=== PATIENT | male | born 1985 | race Caucasian/White ===

== ENCOUNTER 2020-06-22 11:05 | Outpatient (REF) | payer OTHER, SELFPAY ==
[2020-06-22 11:47] LABS: MANUAL DIFF FLAG NO
[2020-06-22 11:52] LABS: Basophils Percent Auto 0.9 % (0-2); Eosinophils Absolute Auto 0.2 X10*3/uL (0.0-0.4); Eosinophils Percent Auto 4.2 % (0-4); Hematocrit 44.2 % (42-52); Hemoglobin 14.6 g/dl (14.0-18.0); Imm Gran Abs Auto 0.01 X10*3/uL (0.00-0.03); Imm Gran Pct Auto 0.2 % (0.0-0.4); Lymphocytes Absolute Auto 1.2 X10*3/uL (1.2-4.9); Mean Corpuscular Hemoglobin 30.2 pg (27.0-33.0); Mean Corpuscular Volume 91.5 fL (80-98); Mean Platelet Volume 9.6 fL (9.4-12.4); Monocytes Absolute Auto 0.4 X10*3/uL (0.1-1.2); Monocytes Percent Auto 9.2 % (2-11); Neutrophils Absolute Auto 2.7 X10*3/uL (2.0-8.3); Neutrophils Percent Auto 58.5 % (45-73); Platelet Count 305 X10*3/uL (160-400); Red Blood Count 4.83 X10*6/uL (4.60-5.80); Red Cell Distribution Width 12.3 % (11.0-16.0); White Blood Count 4.6 X10*3/uL (4.8-10.8)
[2020-06-22 12:31] LABS: Alanine Aminotransferase 28 U/L (0-40); Albumin Level 4.6 g/dL (3.5-5.0); Alkaline Phosphatase 49 U/L (39-117); Anion Gap 14 (12-20); Aspartate Amino Transferase 28 U/L (5-37); Bilirubin Total 0.7 mg/dL (0.0-1.0); Blood Urea Nitrogen 11 mg/dL (9-16); Calcium 9.5 mg/dL (8.4-10.2); Carbon Dioxide 24 mmol/L (22-29); Chloride 105 mmol/L (96-108); Estimated Glomerular Filt Rate > 60; Glucose Fasting 89 mg/dL (60-99); Potassium 4.5 mmol/l (3.3-5.1); Sodium 138 mmol/L (135-145); Total Protein 7.8 g/dL (6.5-8.0)
[2020-06-22 12:37] LABS: Thyroid Stimulating Hormone 0.89 mIU/mL (0.32-4.0)
[2020-06-22 12:44] LABS: Erythrocyte Sedimentation Rate 3 MM/HR (0-15)
== END 2020-06-22 11:06 | disposition home or self-care (01) ==
LOC: HO.LAB 11:05
PROVIDERS: PCP Internal Medicine; Visit Provider Internal Medicine
DX: R53.83 Other fatigue (principal)
CPT/HCPCS: 36415; 80053; 84443; 85025; 85652

== ENCOUNTER 2020-09-07 15:11 | Emergency (ER) | payer OTHER, SELFPAY ==
[2020-09-07 15:14] VITALS: BP 166/97; PULSE 67; RESP 16; TEMP 36.9; O2SAT 99; BMI 25.8
[2020-09-07 19:55] VITALS: BP 155/90; PULSE 77; RESP 17; TEMP 36.2; O2SAT 100
--- NOTE | 2020-09-07 19:57 | PC.NURSE ---
PT REPORTS STOPPING CITALOPRAM 4 WEEKS AGO AND IS EXPERIENCING TREMORS OF HANDS AND MUSCLES.
--- NOTE | 2020-09-07 20:14 | PC.NURSE ---
PLAN DISCUSSED WITH NAZARIO FREDERICK. LABS AND IF LABS ABNORMAL THEN IV AND SALINE BOLUS.
--- NOTE | 2020-09-07 20:30 | ED_ITS ---
HPI - General Adult General Chief complaint: General Medical Stated complaint: Tremors Time Seen by Provider: 09/07/20 20:02 Source: patient Mode of arrival: ambulatory Limitations: no limitations History of Present Illness HPI narrative: Patient presents to ED for tremors and muscle spasms that has been occurring for over 6 weeks. Patient states he was placed on citalopram for about 3 months. Patient states during the 2nd month of taking said medication, Patient started developing tremors, and by the 3rd month his psychiatrist took him off the citalopram. Patient states from the 2nd month being on medication until now he has had tremors. Patient denies any history of alcohol abuse. Patient admits to suffering from anxiety. Related Data Previous Rx's Medication Instructions Recorded hydroxyzine HCl 25 mg PO QID PRN 16 Days #16 tab 09/07/20 Allergies Allergy/AdvReac Type Severity Reaction Status Date / Time No Known Allergies Allergy Unverified 06/04/20 15:44 [No Known Allergies*] Review of Systems Review of Systems: Yes all other systems are reviewed and are negative Constitutional: Constitutional: Reports as per HPI and Reports no additional constitutional complaints Eyes: Eyes: Reports as per HPI and Reports no additional eye complaints ENT: Reports system reviewed and no additional complaints, except as documented and Reports as per HPI Cardiovascular: Cardiovascular: Reports as per HPI and Reports no additional cardiovascular complaints Respiratory: Respiratory: Reports as per HPI and Reports no additional respiratory complaints Gastrointestinal: Gastrointestinal: Reports as per HPI and Reports no additional gastrointestinal complaints Genitourinary: Genitourinary: Reports no additional male genitourinary complaints and Reports as per HPI Musculoskeletal: Musculoskeletal: Reports no additional musculoskeletal complaints and Reports as per HPI Comments: Tremors and muscle spasm. Neurologic: Reports system reviewed and no additional complaints, except as documented and Reports as per HPI Psychiatric: Psychiatric: Reports no additional psychiatric complaints and Reports as per HPI [facility] Past Medical History Medical History (Updated 09/08/20 @ 00:01 by Jhon Bird) Asthma Depression Social History Social History Alcohol intake: current Smoking Status: Never smoker Use of substances other than those prescribed or required for medical reasons: No Advance Directives: No Advance Directives Information Provided: No Physical Exam Vital Signs: Vital Signs: Last Vital Signs Temp 97.2 F 09/07/20 19:55 Pulse 77 09/07/20 19:55 Resp 17 09/07/20 19:55 BP 155/90 H 09/07/20 19:55 Pulse Ox 100 09/07/20 19:55 Body Mass Index 25.8 Const: Other: Patient seem anxious General: cooperative, healthy appearing, comfortable, no acute distress, well developed, alert and awake Orientation/consciousness: patient oriented x3 HENMT: Head: Yes normal to inspection and Yes No palpable skull fracture present Eyes: Other: Negative for nystagmus or ocular clonus Neck: Neck: Yes normal visual inspection, Yes full ROM, Yes no lymphadenopathy, Yes no meningeal signs, Yes trachea midline, Yes supple and No tender Chest: Chest palpation & inspection: normal inspection of the chest and normal palpation of entire chest wall Resp: Effort & Inspection: normal respiratory effort and able to speak in complete sentences Auscultation: clear to auscultation bilaterally Cardio: Jugular venous distension: no JVD Heart sounds: S1 normal heart sound present and S2 normal heart sound present GI: Inspection: Yes normal to inspection and No abdominal wall ecchymosis Palpation (GI): Soft to palpation, not firm, nontender, no guarding and not rigid : General: No CVA tenderness and Yes no CVA tenderness Back/Spine/Pelvis: Back: no CVA tenderness, No CVA tenderness and No back tenderness Skin: General skin exam: no rashes or lesions noted Neuro: Other: Negative pronator drift. Motor and strength of all extremities are intact. Negative for slurred speech. Negative for facial droop. Rapid hand movement and [id number] test intact. Negative Romberg. General: patient oriented x3, gait normal, no meningeal signs and CN's II-XI intact bilaterally Cranial nerves: Yes CN's II-XII intact bilaterally Extrem: Other: Upper extremities positive for mild tremors. Negative pronator drift. Negative for any muscle spasms on exam General: Yes normal to inspection and Yes full ROM Psych: Appearance: grossly normal, well kempt and not disheveled Course Course Course Narrative: Patient seems very anxious. Very unlikely patient having serotonin syndrome toxicity. Patient has been off medication for over 6 weeks. Negative for any ocular clonus. Patient is not hyperthermic. We will do basic labs to check for any electrolyte deficiency. Will do CPK to make sure there is no rhabdomyolysis. Reevaluation(s) Reevaluation #1: History physical exam does not indicate serotonin syndrome. Patient's blood work is normal. Patient does not have any electrolyte abnormalities. Patient's CT scan negative for any acute findings. Patient's CPK is only 241. Patient is not in rhabdomyolysis. Patient is not hyperthermic. Patient is not tachycardic. Patient has been off citalopram for over 6 weeks. History physical exam indicate more anxiety. Patient will be given Atarax informed to follow-up with PCP. Time: 21:46 Medical Decision Making MDM Narrative Medical decision making narrative: Tremors. Anxiety Lab Data Result diagrams: 09/07/20 20:28 09/07/20 20:28 Labs: Lab Results 09/07/20 09/07/20 09/07/20 Range/Units 20:28 20:28 20:28 WBC 7.8 (4.8-10.8) X10*3/uL RBC 4.74 (4.60-5.80) X10*6/uL Hgb 14.5 (14.0-18.0) g/dl Hct 43.7 (42-52) % MCV 92.2 (80-98) fL MCH 30.6 (27.0-33.0) pg MCHC 33.2 (31.0-36.0) g/dl RDW 12.5 (11.0-16.0) % Plt Count 321 (160-400) X10*3/uL MPV 9.0 L (9.4-12.4) fL Immature Gran % (Auto) 0.1 (0.0-0.4) % Neut % (Auto) 55.4 (45-73) % Lymph % (Auto) 29.9 (20-40) % [place] % (Auto) 7.3 (2-11) % Eos % (Auto) 6.7 H (0-4) % Baso % (Auto) 0.6 (0-2) % Lymph # (Auto) 2.3 (1.2-4.9) X10*3/uL [place] # (Auto) 0.6 (0.1-1.2) X10*3/uL Eos # (Auto) 0.5 H (0.0-0.4) X10*3/uL Baso # (Auto) 0.1 (0.0-0.2) X10*3/uL Abs Immat Gran (auto) 0.01 (0.00-0.03) X10*3/uL Absolute Neuts (auto) 4.3 (2.0-8.3) X10*3/uL Absolute Nucleated RBC 0.000 (0.0-0.012) X10*3/uL Nucleated RBC % (auto) 0.0 (0.0-0.2) /100WBC PT 12.2 (10.8-13.0) SEC INR 1.0 (0.9-1.1) APTT 35.5 (24.1-38.0) SEC Sodium 139 (135-145) mmol/L Potassium 4.0 (3.3-5.1) mmol/l Chloride 101 (96-108) mmol/L Carbon Dioxide 29 (22-29) mmol/L Anion Gap 13 (12-20) BUN 14 (9-16) mg/dL Creatinine 0.84 (0.5-1.4) mg/dL Estim Creat Clear Calc 130.3 Estimated GFR > 60 Random Glucose 85 (60-115) mg/dL Calcium 9.2 (8.4-10.2) mg/dL Magnesium 2.1 (1.6-2.6) mg/dL Total Bilirubin 0.6 (0.0-1.0) mg/dL AST 29 (5-37) U/L ALT 41 H (0-40) U/L Alkaline Phosphatase 60 D (39-117) U/L Total Creatine Kinase 241 H (38-174) U/L Total Protein 8.0 (6.5-8.0) g/dL Albumin 4.6 (3.5-5.0) g/dL Discharge Plan Discharge Clinical Impression: Anxiety related tremor Patient Disposition: Home, Self-Care Instructions: Anxiety (ED), Tremors (ED) Additional Instructions: Return to the ED immediately for any headache, dizziness, slurred speech, chest pain, shortness of breath, weakness, loss of vision, or any other concerning symptoms. Prescriptions: New hydroxyzine HCl 25 mg tablet 25 mg PO QID PRN (Reason: anxiety) 16 Days Qty: 16 RF: 0 Referrals: Kody Spear MD [Primary Care Provider] - 2 days (Labs normal. Head CT normal. Refer to Neurology if indicated. Please follow-up with her psychiatrist also) Interventions: ED Discharge Assessment Last Done: 09/07/20 22:09 Discharge Date/Time: 09/07/20 22:14 Print Language: Bahamian
[2020-09-07 20:33] LABS: Basophils Absolute Auto 0.1 X10*3/uL (0.0-0.2); Basophils Percent Auto 0.6 % (0-2); Eosinophils Absolute Auto 0.5 X10*3/uL (0.0-0.4); Eosinophils Percent Auto 6.7 % (0-4); Hematocrit 43.7 % (42-52); Hemoglobin 14.5 g/dl (14.0-18.0); Imm Gran Abs Auto 0.01 X10*3/uL (0.00-0.03); Imm Gran Pct Auto 0.1 % (0.0-0.4); Lymphocytes Absolute Auto 2.3 X10*3/uL (1.2-4.9); Lymphocytes Percent Auto 29.9 % (20-40); MANUAL DIFF FLAG NO; Mean Corpuscular HGB Conc 33.2 g/dl (31.0-36.0); Mean Corpuscular Hemoglobin 30.6 pg (27.0-33.0); Mean Corpuscular Volume 92.2 fL (80-98); Monocytes Absolute Auto 0.6 X10*3/uL (0.1-1.2); Monocytes Percent Auto 7.3 % (2-11); Neutrophils Absolute Auto 4.3 X10*3/uL (2.0-8.3); Neutrophils Percent Auto 55.4 % (45-73); Platelet Count 321 X10*3/uL (160-400); Red Blood Count 4.74 X10*6/uL (4.60-5.80); Red Cell Distribution Width 12.5 % (11.0-16.0); White Blood Count 7.8 X10*3/uL (4.8-10.8)
[2020-09-07 20:40] LABS: Prothrombin Time 12.2 SEC (10.8-13.0)
[2020-09-07 20:42] LABS: Partial Thromboplastin Time 35.5 SEC (24.1-38.0)
--- NOTE | 2020-09-07 20:45 | CT_ITS ---
EXAMINATION: CT HEAD WITHOUT CONTRAST CLINICAL INFORMATION: tremors. brain mass? COMPARISON: None TECHNIQUE: Contiguous axial imaging was performed from the skull base to vertex without intravenous administration of contrast. This CT examination was performed using dose optimization techniques as appropriate, variously including the following: *Automated exposure control *Adjustment of mA and/or kV according to patient size (this includes techniques or standardized protocols for targeted exams where dose is matched to indication/reason for exam; i.e. extremities or head) *Use of iterative reconstruction technique DLP: 724 mGy-cm FINDINGS: There is no evidence of acute intracranial hemorrhage or territorial infarction. No abnormal mass effect or midline shift is seen. Dupont to white matter differentiation is well preserved. No extra-axial fluid collections are identified. The ventricles are normal in size. There is no abnormal attenuation within the brain parenchyma. The osseous structures and soft tissues are normal. The mastoid air cells and visualized portions of the paranasal sinuses are well aerated. CT/CT head/brain wo con IMPRESSION: No acute intracranial pathology.
[2020-09-07 20:54] LABS: Alanine Aminotransferase 41 U/L (0-40); Albumin Level 4.6 g/dL (3.5-5.0); Alkaline Phosphatase 60 U/L (39-117); Anion Gap 13 (12-20); Aspartate Amino Transferase 29 U/L (5-37); Bilirubin Total 0.6 mg/dL (0.0-1.0); Blood Urea Nitrogen 14 mg/dL (9-16); Calcium 9.2 mg/dL (8.4-10.2); Carbon Dioxide 29 mmol/L (22-29); Chloride 101 mmol/L (96-108); Creatinine Clr Calc Pharmacy 130.3; Estimated Glomerular Filt Rate > 60; Glucose Random 85 mg/dL (60-115); Magnesium 2.1 mg/dL (1.6-2.6); Sodium 139 mmol/L (135-145)
== END 2020-09-07 22:14 | disposition home or self-care (01) ==
PROVIDERS: Physician Assistant; Emergency Provider Internal Medicine; PCP Internal Medicine
DX: F41.9 Anxiety disorder, unspecified (principal); R25.1 Tremor, unspecified
CPT/HCPCS: 36415; 70450; 80053; 82550; 83735; 85025; 85610; 85730; 99284

== ENCOUNTER 2020-11-27 10:38 | Outpatient (REF) | payer OTHER, SELFPAY ==
[2020-11-27 11:41] LABS: SARS COV2 IgG Negative (Negative)
== END 2020-11-27 10:39 | disposition home or self-care (01) ==
LOC: HO.LNP 10:38
PROVIDERS: Visit Provider Internal Medicine
DX: B94.8 Sequelae of other specified infectious and parasitic diseases (principal)
CPT/HCPCS: 86769

== ENCOUNTER 2023-01-19 16:58 | Outpatient (REF) | payer OTHER, SELFPAY ==
--- NOTE | ~2023-01-19 | XR_ITS ---
EXAMINATION: XR TIBIA AND FIBULA, LEFT CLINICAL INFORMATION: Pain. COMPARISON: None available. TECHNIQUE: AP and lateral views of the left tibia and fibula were obtained. FINDINGS: No acute fractures or malalignment. No aggressive appearing osseous lesions. No significant soft tissue abnormality. No unexpected radiopaque foreign bodies. XR/XR tibia fibula LT 2V IMPRESSION: Normal radiographic examination of the left tibia/fibula.
== END 2023-01-19 16:59 | disposition home or self-care (01) ==
LOC: HO.HMGCX 16:58
PROVIDERS: Visit Provider Physician Assistant Medical
DX: M79.662 Pain in left lower leg (principal)
CPT/HCPCS: 73590

== ENCOUNTER 2023-02-27 16:07 | Outpatient (REF) | payer OTHER, SELFPAY ==
--- NOTE | ~2023-02-27 | US_ITS ---
EXAMINATION: US VENOUS ULTRASOUND WITH DOPPLER LOWER EXTREMITY, LEFT CLINICAL INFORMATION: Pain. COMPARISON: None available. TECHNIQUE: Ultrasound of the deep veins is performed from the hip to the calf with compression sonography and color and pulse Doppler assessment. Spectral analysis with color-flow imaging is performed. FINDINGS: There is normal venous compression and respiratory variation and augmented flow. The visualized common femoral vein, superficial femoral vein, profunda femoral vein, popliteal vein, and the trifurcation region shows no evidence of deep venous thrombosis. There is no significant popliteal fossa cyst. US/US venous duplex LE LT IMPRESSION: No DVT demonstrated in the left lower extremity.
== END 2023-02-27 16:08 | disposition home or self-care (01) ==
LOC: HO.US 16:07
PROVIDERS: PCP Physician Assistant; Visit Provider Physician Assistant Medical
DX: M79.662 Pain in left lower leg (principal)
CPT/HCPCS: 93971

== ENCOUNTER 2023-05-25 11:28 | Outpatient (REF) | payer OTHER, SELFPAY ==
[2023-05-25 11:55] LABS: MANUAL DIFF FLAG NO
[2023-05-25 12:19] LABS: Basophils Percent Auto 0.5 % (0-2); Eosinophils Absolute Auto 0.3 X10*3/uL (0.0-0.4); Eosinophils Percent Auto 4.4 % (0-4); Hematocrit 44.8 % (42.0-52.0); Hemoglobin 15.2 g/dl (14.0-18.0); Imm Gran Abs Auto 0.01 X10*3/uL (0.00-0.03); Imm Gran Pct Auto 0.2 % (0.0-0.4); Lymphocytes Absolute Auto 2.4 X10*3/uL (1.2-4.9); Lymphocytes Percent Auto 42.5 % (20-40); Mean Corpuscular HGB Conc 33.9 g/dl (31.0-36.0); Mean Corpuscular Hemoglobin 31.2 pg (27.0-33.0); Mean Platelet Volume 9.6 fL (9.4-12.4); Monocytes Absolute Auto 0.5 X10*3/uL (0.1-1.2); Neutrophils Absolute Auto 2.5 x10*3/uL (2.0-8.3); Neutrophils Percent Auto 44.4 % (45-73); Platelet Count 349 X10*3/uL (160-400); Red Blood Count 4.87 X10*6/uL (4.60-5.80); Red Cell Distribution Width 12.8 % (11.0-16.0); White Blood Count 5.6 X10*3/uL (4.8-10.8)
[2023-05-25 12:25] LABS: Appearance Urine Clear; Color Urine Yellow; Glucose Urine UA Negative (Negative); Leukocyte Esterase Urine Negative (Negative); Nitrite Urine Negative (Negative); PH 5.5 (5.0-9.0); Specific Gravity - Urine 1.015 (1.005-1.025); Urine Blood Negative (Negative); Urine Ketones Negative (Negative); Urine Protein Negative (Neg-Trace)
[2023-05-25 12:27] LABS: Alanine Aminotransferase 44 U/L (0-40); Albumin Level 4.3 g/dL (3.5-5.0); Alkaline Phosphatase 59 U/L (39-117); Anion Gap 15 (12-20); Aspartate Amino Transferase 38 U/L (5-37); Bilirubin Total 0.6 mg/dL (0.0-1.0); Blood Urea Nitrogen 14 mg/dL (9-16); Calcium 9.1 mg/dL (8.4-10.2); Carbon Dioxide 23 mmol/L (22-29); Chloride 107 mmol/L (96-108); Cholesterol 231 mg/dL (<200); Estimated Glomerular Filt Rate > 60; Glucose Fasting 94 mg/dL (60-99); HDL Cholesterol 62 mg/dL (>40); LDL Cholesterol Calculated 132 mg/dL (<100); Potassium 3.9 mmol/L (3.3-5.1); Sodium 141 mmol/L (135-145); Triglycerides 187 mg/dL (<150)
== END 2023-05-25 11:29 | disposition home or self-care (01) ==
LOC: HO.LNP 11:28
PROVIDERS: Visit Provider Internal Medicine
DX: Z00.00 Encounter for general adult medical examination without abnormal findings (principal); Z20.2 Contact with and (suspected) exposure to infections with a predominantly sexual mode of transmission
CPT/HCPCS: 80053; 80061; 81003; 85025

== ENCOUNTER 2024-05-21 12:13 | Outpatient (REF) | payer OTHER, SELFPAY ==
[2024-05-21 12:24] LABS: MANUAL DIFF FLAG NO
[2024-05-21 12:41] LABS: Basophils Absolute Auto 0.1 X10*3/uL (0.0-0.2); Basophils Percent Auto 0.7 % (0-2); Eosinophils Absolute Auto 0.5 X10*3/uL (0.0-0.4); Eosinophils Percent Auto 6.7 % (0-4); Hematocrit 47.4 % (42.0-52.0); Hemoglobin 15.6 g/dl (14.0-18.0); Imm Gran Abs Auto 0.02 X10*3/uL (0.00-0.03); Imm Gran Pct Auto 0.3 % (0.0-0.4); Lymphocytes Absolute Auto 2.4 X10*3/uL (1.2-4.9); Lymphocytes Percent Auto 35.6 % (20-40); Mean Corpuscular HGB Conc 32.9 g/dl (31.0-36.0); Mean Corpuscular Hemoglobin 30.6 pg (27.0-33.0); Mean Corpuscular Volume 93.1 fL (80.0-98.0); Mean Platelet Volume 9.7 fL (9.4-12.4); Monocytes Absolute Auto 0.6 X10*3/uL (0.1-1.2); Monocytes Percent Auto 9.5 % (2-11); Neutrophils Absolute Auto 3.2 x10*3/uL (2.0-8.3); Neutrophils Percent Auto 47.2 % (45-73); Platelet Count 331 X10*3/uL (160-400); Red Blood Count 5.09 X10*6/uL (4.60-5.80); Red Cell Distribution Width 12.9 % (11.0-16.0); White Blood Count 6.8 X10*3/uL (4.8-10.8)
[2024-05-21 12:55] LABS: Alanine Aminotransferase 26 U/L (0-40); Albumin Level 4.4 g/dL (3.5-5.0); Alkaline Phosphatase 62 U/L (39-117); Anion Gap 14 (12-20); Aspartate Amino Transferase 24 U/L (5-37); Bilirubin Total 1.2 mg/dL (0.0-1.0); Blood Urea Nitrogen 17 mg/dL (9-16); Calcium 9.6 mg/dL (8.4-10.2); Carbon Dioxide 28 mmol/L (22-29); Chloride 102 mmol/L (96-108); Cholesterol 237 mg/dL (<200); Estimated Glomerular Filt Rate > 60; Glucose Fasting 90 mg/dL (60-99); HDL Cholesterol 70 mg/dL (>40); LDL Cholesterol Calculated 147 mg/dL (<100); Potassium 3.7 mmol/L (3.3-5.1); Sodium 140 mmol/L (135-145); Total Protein 8.3 g/dL (6.5-8.0); Triglycerides 101 mg/dL (<150)
[2024-05-21 13:02] LABS: Appearance Urine Clear; Color Urine Yellow; Glucose Urine UA Negative (Negative); Leukocyte Esterase Urine Trace (Negative); Nitrite Urine Negative (Negative); PH 6.5 (5.0-9.0); Specific Gravity - Urine 1.025 (1.005-1.025); UMIC TRIGGER UACC YES; Urine Blood Negative (Negative); Urine Ketones Trace mg/dL (Negative); Urine Protein Negative (Neg-Trace)
[2024-05-21 13:05] LABS: Bacteria Urine None Seen (None Seen); Hyaline Casts Urine 0-2 /LPF (0-2); RBC Urine 0-2 /HPF (0-2); Squamous Epithelial Cell Urine 0-2 /HPF (0-2); WBC Urine 0-5 /HPF (0-5)
== END 2024-05-21 12:14 | disposition home or self-care (01) ==
LOC: HO.LNP 12:13
PROVIDERS: Visit Provider Internal Medicine
DX: Z00.00 Encounter for general adult medical examination without abnormal findings (principal)
CPT/HCPCS: 80053; 80061; 81001; 85025

== ENCOUNTER 2024-11-28 13:14 | Outpatient (REF) | payer OTHER, SELFPAY ==
[2024-11-28 13:17] LABS: MANUAL DIFF FLAG NO
[2024-11-28 13:22] LABS: Basophils Percent Auto 0.9 % (0-2); Eosinophils Absolute Auto 0.4 X10*3/uL (0.0-0.4); Eosinophils Percent Auto 8.6 % (0-4); Hematocrit 48.9 % (42.0-52.0); Hemoglobin 16.9 g/dl (14.0-18.0); Imm Gran Abs Auto 0.01 X10*3/uL (0.00-0.03); Imm Gran Pct Auto 0.2 % (0.0-0.4); Lymphocytes Absolute Auto 1.5 X10*3/uL (1.2-4.9); Mean Corpuscular HGB Conc 34.6 g/dl (31.0-36.0); Mean Corpuscular Hemoglobin 31.1 pg (27.0-33.0); Mean Corpuscular Volume 90.1 fL (80.0-98.0); Mean Platelet Volume 9.6 fL (9.4-12.4); Monocytes Absolute Auto 0.4 X10*3/uL (0.1-1.2); Monocytes Percent Auto 9.5 % (2-11); Neutrophils Absolute Auto 2.3 x10*3/uL (2.0-8.3); Neutrophils Percent Auto 48.8 % (45-73); Platelet Count 320 X10*3/uL (160-400); Red Blood Count 5.43 X10*6/uL (4.60-5.80); Red Cell Distribution Width 13.2 % (11.0-16.0); White Blood Count 4.7 X10*3/uL (4.8-10.8)
[2024-11-28 13:53] LABS: PSA,Total (Free>4and<10) 0.88 ng/mL (0.00-4.00)
--- OUTSIDE RECORDS SUMMARY | 2024-11-28 16:44 | XMS_ITS ---
Author Organization Kody Spear MD Address [address] [place], [place] [phone] Care Team Providers Care Animal Doctor Name Role Phone Kody Spear Primary Care Provider Allergies No Known Allergies Results Component Value Reference Range Notes PSA,Total (Free>4and<10) Reviewed date:11/28/2024 04:08:52 PM Interpretation: Performing Lab:[facility], [address] [place] [phone] Notes/Report: PSA,Total (Free>4and<10) 0.88 0.00-4.00 ng/mL A [...] between 4.0 and 10.0 ng/mL. PSA methodology: Laen Alinity i Chemiluminescent Microparticle Immunoassay (CMIA) REASON FOR VISIT CHANGE IN ENDO DR [...] 800 MG TAKE 1 TABLET BY PRASHANTH THREE TIMES A DAY WITH FOOD OR [...] W/U Status Risk Notes Problem Androgen deficiency (89529602) Testosterone deficiency (E29.1) Active confirmed Vital Signs Blood pressure systolic 132 mm Hg 11/29/19 25 Blood pressure diastolic 88 mm Hg 025 Height 69 in 11/28/2024 Weight 199 lbs 11/28/2024 BMI 29.38 kg/m2 11/28/2024 weight is up 5 pounds since 06-20-24 Encounters Encounter Location Date Provider Diagnosis Kody Spear MD [address] [place] [address] [place] [phone] 11/28/2024 Kody Spear Testosterone deficiency E29.1 Assessments Encounter Date Diagnosis (ICD Code) Assessment Notes Treatment Notes Treatment Clinical Notes Section Notes 11/28/2024 Testosterone deficiency (ICD-10 - E29.1) discussed referral to [facility] at [facility], will continue to monitor, labs pending Plan Of Treatment Treatment Notes Assessment Notes Testosterone deficiency discussed referr al to Endo at [facility], will continue to monitor, labs pending Pending Test Test Name Order Date CBC w DIFF 11/28/2024 Testosterone, Free/Total 11/28/2024 Next Appt Details Provider Name:Kody paulson, 06/17/2025 07:45:00 AM, [address] [place] [address], [address] [facility], [place], [place], [phone], Provider Name:Kody paulson, 06/23/2025 02:30:00 PM, [address] [place] [address], [address] [facility], [place], [place], [phone], Progress Notes * Froilan MARK PDOB:1985 (39 yo M)Acc No.[id number]:11/28/2024 Progress Notes Patient:?Froilan MARK Provider:?Kody Spear MD :1985???Age:39 Y???Sex:Male Juan J e:11/28/2024 Address:[address] [place], [place] [address]Jonathan murcia, [id number] Subjective: * Chief Complaints: * ???1. CHANGE IN ENDO DR. * HPI: ???Symptom(s):?patient s a 39 yo male here for follow up. had been seen by dr trotter at [facility].? has been treated with an anti estrogen and clomid. and then put on testosterone. needs referral to endocrine at [facility]. dr trotter said that he needs blood work every 6 months. needs total free testosterone and psa and cbc. * ROS:?General/Constitutional:?Denies?Chills.?Denies?Fatigue.?Denies?Fever.?Denies?Headache.?ENT:?Patient denies?decreased sense of smell, any loss of taste, sore throat.?Denies?Sore throat.?Respiratory:?Denies?Cough.?Denies?Shortness of breath at rest.?Denies?Shortness of breath with exertion.?Gastrointestinal:?Denies?Diarrhea.?Denies?Nausea.?Musculoskeletal:?Patient denies?muscle aches.?Peripheral Vascular:?Patient denies?red and blue toes.? * Medical History:?Ct of head normal in er 09/06. * Medications:?Taking Testoste zuleima Cypionate 200 MG/ML Solution 1 mL Intramuscular , Taking Ibuprofen 800 MG Tablet TAKE 1 TABLET BY MOUTH THREE TIMES A DAY WITH FOOD OR MILK NEEDED FOR 30 DAYS , Taking ProAir HFA 108 (90 Base) MCG/ACT Aerosol Solution 1 puff as needed Inhalation every 4 hrs , Not-Taking/PRN Omeprazole 20 MG Capsule Delayed Release 1 capsule 30 minutes before morning meal Orally Once a day , Not-Taking/PRN Wellbutrin SR 100 MG Tablet Extended Release 12 Hour 2 tabs q am Orally Once a day , Not-Taking/PRN Citalopram Hydrobromide 20 MG Tablet 1 1/2 Orally Once a day , Not-Taking/PRN Escitalopram Oxalate 10 MG Tablet 1 tablet Orally Once a day , Not-Taking/PRN Clobetasol Propionate 0.05 % Cream 1 application to affected area Externally Twice a day , Medication List reviewed and reconciled with the patient * Allergies:?N.K.D.A. Objective: * Vitals:?Ht: 69, Wt: 199, BMI :29.38, BP:132/88, Wt-k.27. weight is up 5 pounds since 06-20-24. * Examination: ???General Examination: ?GENERAL APPEARANCE:?alert, well hydrated, in no distress, male.?HEAD:?normocephalic.?SKIN:?good turgor.?HEART:?no murmurs, rubs, gallops.?LUNGS:?no wheezes, rales, rhonchi, good air movement, clear to auscultation bilaterally.? Assessment: * Assessment: 1.?Testosterone deficiency - E29.1 (Primary)??? Plan: * Treatment: * Procedure Codes:?94043 VENIP UNCT, ROUTINE* * * The named appointment provid er may or may not be the originator of this progress note, and it is not deemed complete until electronically signed by the appointment provider. Sign off status: Pending * Provider:?Kody Spear MD Date:?0 11/28/2024 Generated for Ilene hernandes/Chelo/Poonamitting on:?11/28/2024 04:44 PM EDT History and Physical Notes * HPI (History of Present Illness) Category Sub-Category Detail Notes Category Not es Symptom(s) patient s a 39 yo male here for follow up. had been seen by dr trotter at [facility]. has been treated with an anti estrogen and clomid. and then put on testosterone. needs referral to endocrine at [facility]. dr trotter said that he needs [...]
--- OUTSIDE RECORDS SUMMARY | 2024-11-28 16:44 | XMS_ITS ---
Author Organization oKdy Spear MD Address [address] [place], [place] [phone] Care Team Providers Care Home Organizer Name Role Phone Kody Spear Primary Care [...] Location Date Provider Diagnosis Kody Spear MD [address] [place] [address] [address] [place], [place] [phone] 06/20/2024 Kody Spear Mojgantzki's ring K22. 2 [...] Colon cancer screening no stool, sent ho me with cards , will return to office Depression screening negative screen Next Appt Details Follow Up: 1 Year, Reason: Provider Name:Kody Rashid ier, 06/17/2025 07:45:00 AM, [address], [address], [place], [place], [phone], Provider Name:Kody Rashid ier, 06/23/2025 02:30:00 PM, [address], [address], [place], [place], [phone], Progress Notes * CARLINBOB Froilan PDOB:1985 (38 yo M)Acc No.[id number]:06/20/2024 Progress Notes Patient:?Froilan Mark P Provider:?Kody Spear MD :1985???Age:38 Y???Sex:Male Juan J e:06/20/2024 Address:[address] [place] [address] Jonathan holguin, [id number] Subjective: * Chief Complaints: * ???Annual visit * HPI: ???Depression Screening:?PHQ-9?Little interest or pleasure in doing things?Not at all,?Feeling down, depressed, or hopeless?Not at all,?Trouble falling or staying asleep, or sleeping too much?Not at all,?Feeling tired or having little energy?Not at all,?Poor appetite or overeating?Not at all,?Feeling bad about yourself or that you are a failure, or have let yourself or your family down?Not at all,?Trouble concentrating on things, such as reading the newspaper or watching television?Not at all,?Moving or speaking so slowly that other people could have noticed; or the opposite, being so fidgety or restless that you have been moving around a lot more than usual?Not at all,?Thoughts that you would be better off or of hurting yourself in some way?Not at all,?Total Score?0.?Interpretation and Intervention?Depression Screening Findings?Negative,?Follow-Up for Depression?: review of PHQ-9 found negative result, no follow-up needed.?Communication Needs:?Communication Needs?Does the patient have a hearing impairment?No,?Does the patient have a vision impairment??No,?Does the patient have a cognition impairment??No.?SDOH Questions:?SDOH Questions?In the past year have you been worried about losing housing??No,?In the past year have you or any family members you live with been unable to get any of the following when it was really needed? Check all that apply:?None.?Symptom(s):? patient is a 38 yo male here for annual visit with review of recent labs andfollow up of chronic issues, here for follow up. has been doing well since getting on day shift. * ROS:?General/Constitutional:?Change in appetite?denies.?Chills?denies.?Fever?denies.?Ophthalmologic:?Blurred vision?denies.?Discharge?denies.?Pain?denies.?ENT:?Decreased hearing?denies.?Sore throat?denies.?Swollen glands?denies.?Endocrine:?Cold intolerance?denies.?Excessive thirst?denies.?Heat intolerance?denies.?Weight loss?denies.?Respiratory:?Cough?denies.?Shortness of breath at rest?denies.?Shortness of breath with exertion?denies.?Wheezing?denies.?Cardiovascular:?Chest pain at rest?denies.?Chest pain with exertion?denies.?Irregular heartbeat?denies.?Shortness of breath?denies.?Gastrointestinal:?Abdominal pain?denies.?Change in bowel habits?denies.?Diarrhea?denies.?Nausea?denies.?Rectal bleeding?denies.?Vomiting?denies .?Genitourinary:?Blood in urine?denies.?Difficulty urinating?denies.?Frequent urination?denies.?Musculoskeletal:?Painful joints?denies.?Weakness?denies.?Skin:?Dry skin?denies.?Itching?denies.?Denies?Mole(s),? changes in moles, new moles or any lesions of concern.?Denies?Photosensitivity.?Rash?denies.?Neurologic:?Dizziness?denies.?Fainting?denies.?Headache?denies.? * Medical History:? * Surgical History:? * Hospitalization/Major Diagno stic Procedure:? * Family History:?Father: nu ruelas?Mother: alive.?2 son(s) . .? No pertinent family medical history, No pertinent family medical history. * Social History:?Tobacco Use:?Tobacco Use/Smoking?Patient is a?nonsmoker.?Drugs/Alcohol:?Alcohol Screen?Did you have a drink containing alcohol in the past year??Yes,?How often did you have a drink containing alcohol in the past year??2 to 3 times a week (3 points),?How many drinks did you have on a typical day when you were drinking in the past year??3 or 4 drinks (1 point),?How often did you have 6 or more drinks on one occasion in the past year??Never (0 point),?Points?4,?Interpretation?Positive.?Miscellaneous:?no Caffeine, 2-3 cups per day. Children: yes. no Exercise. Home smoke detector use: yes. Housing: owning. Living with: family, spouse. Marital status: . Occupation: works full-time. Pets: none, 1 dog. no Travel outside of the [place]. * Medications:?TakingIbuprofen 800 MG Tablet TAKE 1 TABLET BY [...] reviewed and reconciled with the patient * Allergies:?N.K.D.A.yes[Aller gies Verified] Objective: * Vitals:?Ht: 69, Wt:194, BMI: 28.65, BP:122/84 weigt is down 5 pounds since 11-23-23. * ???Past Orders: ???Lab:Complete Blood Count Auto Diff (Order Date - 05/21/2024) (Collection Date - 05/21/2024) ? Value Reference Range ?White Blood Count 6.8 4. 8-10.8 - X10*3/uL ?Red Blood Count 5.09 4.60 -5.80 - X10*6/uL ?Hemoglobin 15.6 14.0-18.0 - g/dl ?Hematocrit 47.4 42.0-52.0 - % ?Mean Corpuscular Volume 93.1 80.0-98.0 - fL ?Mean Corpuscular Hemoglobin 30.6 27.0-33.0 - pg ?Mean Corpuscular HGB Conc 32.9 31.0-36.0 - g/dl ?Red Cell Distribution Width 12.9 11.0-16.0 - % ?Platelet Count 331 160-4 00 - X10*3/uL ?Mean Platelet Volume 9.7 9.4-12.4 - fL ?Neutrophils Percent Auto 47.2 45-73 - % ?Imm Gran Pct Auto 0.3 0. 0-0.4 - % ?Lymphocytes Percent Auto 35.6 20-40 - % ?Monocytes Percent Auto 9.5 2-11 - % ?Eosinophils Percent Auto 6.7 H 0-4 - % ?Basophils Percent Auto 0.7 0-2 - % ?NRBC Pct Auto 0.0 0.0-0. 2 - /100WBC ?Neutrophils Absolute Auto 3.2 2.0-8.3 - x10*3/uL ?Imm Gran Abs Auto 0.02 0. 00-0.03 - X10*3/uL ?Lymphocytes Absolute Auto 2.4 1.2-4.9 - X10*3/uL ?Monocytes Absolute Auto 0.6 0.1-1.2 - X10*3/uL ?Eosinophils Absolute Auto 0.5 H 0.0-0.4 - X10*3/uL ?Basophils Absolute Auto 0.1 0.0-0.2 - X10*3/uL ?NRBC Abs Auto 0.000 0.0-0. 012 - X10*3/uL ???Lab:Comprehensive [place]. P austin Fast (Order Date - 05/21/2024) (Collection Date - 05/21/2024) ? Value Reference Range ?Sodium 140 135-145 - mmo l/L ?Bilirubin Total 1.2 H 0.0- 1.0 - mg/dL ?Aspartate Amino Transferase 24 5-37 - U/L ?Alanine Aminotransferase 26 0-40 - U/L ?Total Protein 8.3 H 6.5-8. 0 - g/dL ?Albumin Level 4.4 3.5-5. 0 - g/dL ?Alkaline Phosphatase 62 39-117 - U/L ?Potassium 3.7 3.3-5.1 - mmol/L ?Chloride 102 96-108 - mm ol/L ?Carbon Dioxide 28 22-29 - mmol/L ?Anion Gap 14 12-20 - ?Blood Urea Nitrogen 17 H 9-16 - mg/dL ?Creatinine 0.92 0.5-1.4 - mg/dL ?Estimated Glomerular Filt Rate > 60 - ?Glucose Fasting 90 60-9 9 - mg/dL ?Calcium 9.6 8.4-10.2 - m g/dL ???Lab:Lipid Panel (Order Da te - 05/21/2024) (Collection Date - 05/21/2024) ? Value Reference Range ?Triglycerides 101 <150 - mg/dL ?Cholesterol 237 H <200 - m g/dL ?LDL Cholesterol Calculated 147 H <100 - mg/dL ?HDL Cholesterol 70 >40 - mg/dL ???Lab:UA ClnCatch+Micro w/r flx Cult (Order Date - 05/21/2024) (Collection Date - 05/21/2024) ? Value Reference Range ?Color Urine Yellow - ?Appearance Urine Clear - ?PH 6.5 5.0-9.0 - ?Glucose Urine UA Negative Neg ative - mg/dL ?Urine Blood Negative Negative - ?Specific [place] - Urine 1.025 1.005-1.025 - ?Urine Protein Negative Neg-Tr lito - mg/dL ?Urine Ketones Trace Negati ve - mg/dL ?Nitrite Urine Negative Negati ve - ?Leukocyte Esterase Urine Trace A Negative - ?RBC Urine 0-2 0-2 - /HPF ?WBC Urine 0-5 0-5 - /HPF ?Squamous Epithelial Cell Urine 0-2 0-2 - /HPF ?Bacteria Urine None Seen None Seen - ?Hyaline Casts Urine 0-2 0-2 - /LPF * Examination: ???General Examination: ?GENERAL APPEARANCE:?well developed, well nourished, in no acute distress.?HEAD:?normocephalic, atraumatic.?EYES:?pupils equal, round, reactive to light and accommodation, sclera non-icteric.?EARS:?normal.?ORAL CAVITY:?mucosa moist.?THROAT:?clear.?NECK/THYROID:?neck supple, full range of motion, no cervical lymphadenopathy, no bruits.?SKIN:?warm and dry, no suspicious lesions.?HEART:?regular rate and rhythm, S1, S2 normal, no murmurs.?LUNGS:?clear to auscultation bilaterally.?ABDOMEN:?soft, nontender, nondistended, bowel sounds present, normal, no organomegaly , no masses palpable.?RECTAL EXAM:?normal tone, no external hemorrhoids, no masses palpable, prostate normal, no stool? sent with cards.?MALE GENITOURINARY:?uncircumcised, no testicular mass, testes descended bilaterally.?EXTREMITIES:?no clubbing, cyanosis, or edema.?NEUROLOGIC:?nonfocal, motor strength normal upper and lower extremities, sensory exam intact.? Assessment: * Assessment: 1.?Annual physical exam - Z0 0.00 (Primary)?2.?Schatzki's ring - K22.2?3.?Low testosterone in male - R79.89?4.?Encounter for immunization - Z23?5.?Panic attacks - F41.0?6.?Mild intermittent asthma without complication - J45.20?7.?Colon cancer screening - Z12.11?8.?Depression screening - Z13.31? Plan: * Treatment: 2.?Schatzki's ring? Notes: not having any problems?? 3.?Low testosterone in male? Notes: had appt with dr bates endocrine?? 4.?Encounter for immunizatio n? Notes: flu vaccine administered?? 5.?Panic attacks? Notes: not having any problems?? 6.?Mild intermittent asthma without complication? Notes: stable, will continue current regiment?? 7.?Colon cancer screening? Notes: no stool, sent home with cards , will return to office?? 8.?Depression screening? Notes: negative screen?? * Immunizations:? Fluarix Quadrivalent - 150 : 0.5 mL (Dose No:1) (Route: Intramuscular) given by Milena James on Left Deltoid * Procedure Codes:?48429 FLU V ACCINE NO PRESERV 3 & >70420 IMMUNIZATION ADMIN * Preventive Medicine:? ??Counseling:?Care goal follow-up plan:?Counseling for abnormal BMI provided?Yes,?Above Normal BMI Follow-up?Giving encouragement to exercise.? ??Immunizations:?Influenza?Have you had a flu shot since the most recent May 19??Yes.? * Follow Up:?1 Year * * Sign off status: Completed true * Provider:?Kody Spear MD Date:?1 Generated for Griseldai cecilio/Chelo/eTransmitting on:?11/28/2024 04:44 PM EDT History and Physical [...]
--- OUTSIDE RECORDS SUMMARY | 2024-11-28 16:44 | XMS_ITS ---
Author Organization Kody Spear MD Address [address] [place], [place] [phone] Care Team Providers Care Supervisor Pipeline Maintenance Name Role Phone Kody Spear Primary Care Provider Results Component Value Reference Range Notes Complete Blood Count Auto Di ff Reviewed date:05/21/2024 02:14:55 PM Interpretation: Performing Lab:[facility], [address] [place] [phone] Notes/Report: White Blood Count 6.8 4.8-10.8 X10*3/uL [...] NRBC Abs Auto 0.000 0.0-0.012 X10*3/uL Comprehensive [place]. Panel Fa st Reviewed date:05/21/2024 05:06:49 PM Interpretation: Performing Lab:[address] [phone] Notes/Report: Sodium 140 135-145 mmol/L Potassium 3.7 3.3-5.1 mmol/L Chloride 102 96-108 mmol/L Carbon Dioxide 28 22-29 mmol/L Anion Gap 14 12-20 Blood Urea Nitrogen 17 9-16 mg/dL Creatinine 0.92 0.5-1.4 mg/dL Estimated Glomerular Filt Rate > 60 NOTE: For -Georgian individuals, multiply the result by 1.210. Chronic [...] Panel Reviewed date:05/21/2024 02:13:22 PM Interpretation: Performing Lab:[facility], [address] [place] [phone] Notes/Report: Triglycerides 101 <150 mg/dL Desirable Triglyceride: [...] t Reviewed date:05/21/2024 05:05:52 PM Interpretation: Performing Lab:[facility], [address] [place] [phone] Notes/Report: Urine, Clean Catch Color Urine Yellow Appearance Urine Clear PH 6.5 5.0-9.0 Glucose Urine UA Negative Negative mg/dL Urine Blood Negative Negative Specific [place] - Urine 1.025 1.005-1.025 Urine Protein Negative [...] Location Date Provider Diagnosis Kody Spear MD [address] [place] [address] [place] [phone] 05/21/2024 Kody Spear Blood tests for routine general physical examination Z00.00 Assessments Encounter Date Diagnosis (ICD Code) Assessment Notes Treatment Notes Treatment Clinical Notes Section Notes 05/21/2024 Blood tests for routine general physical examination (ICD-10 - Z00.00) Plan Of Treatment Next Appt Details Provider Name:Kody paulson, 06/17/2025 07:45:00 AM, [address] [place] [address], [address], [phone], Provider Name:Kody paulson, 06/23/2025 02:30:00 PM, [address] [place] [address], [address], [place], [place], [phone], Progress Notes * Froilan MARK PDOB:1985 (39 yo M)Acc No.[id number]:05/21/2024 Progress Note Patient:Froilan SIMS Provider:?Kody Spear MD :1985???Age:38 Y???Sex:Male Juan J e:05/21/2024 Address:[address] [place] [address] [id number] Subjective: * Chief Complaints: * ???1. Yearly fasting labs. * Medical History:? Objective: * Vitals:? Assessment: * Assessment: 1.?Blood tests for routine g eneral physical examination - Z00.00 (Primary)??? Plan: * Treatment: * Procedure Codes:?97925 VENIP UNCT, ROUTINE* * * The named appointment provid er may or may not be the originator of this progress note, and it is not deemed complete until electronically signed by the appointment provider. Sign off status: Pending * Provider:?Kody Spear MD Date:?0 05/21/2024 Generated for Ilene hernandes/Chelo/Judismitting on:?11/28/2024 04:43 PM EDT
--- OUTSIDE RECORDS SUMMARY | 2024-11-28 16:44 | XMS_ITS | Patient Health Record ---
Author Organization Kody Spear MD Address [address] [place], [place] [phone] Care Team Providers Care Dry House Worker Name Role Phone Kody Spear Primary Care Provider [phone] Allergies No Known Allergies Results Component Value Reference Range Notes Complete Blood Count Auto Di ff Reviewed date:05/21/2024 02:14:55 PM Interpretation: Performing Lab:[facility], [address] [place] [phone] Notes/Report: White Blood Count 6.8 4.8-10.8 X10*3/uL [...] NRBC Abs Auto 0.000 0.0-0.012 X10*3/uL Comprehensive [place]. Panel Fa st Reviewed date:05/21/2024 05:06:49 PM Interpretation: Performing Lab:[facility], [address] [place] [phone] Notes/Report: Sodium 140 135-145 mmol/L Potassium 3.7 3.3-5.1 mmol/L Chloride 102 96-108 mmol/L Carbon Dioxide 28 22-29 mmol/L Anion Gap 14 12-20 Blood Urea Nitrogen 17 9-16 mg/dL Creatinine 0.92 0.5-1.4 mg/dL Estimated Glomerular Filt Rate > 60 NOTE: For -Vietnamese individuals, multiply the result by 1.210. Chronic [...] Panel Reviewed date:05/21/2024 02:13:22 PM Interpretation: Performing Lab:[facility], [address] [place] [phone] Notes/Report: Triglycerides 101 <150 mg/dL Desirable Triglyceride: [...] t Reviewed date:05/21/2024 05:05:52 PM Interpretation: Performing Lab:[address] [phone] Notes/Report: Urine, Clean Catch Color Urine Yellow Appearance Urine Clear PH 6.5 5.0-9.0 Glucose Urine UA Negative Negative mg/dL Urine Blood Negative Negative Specific [place] - Urine 1.025 1.005-1.025 Urine Protein Negative Neg-Trace mg/dL Urine Ketones Trace Negative mg/dL Nitrite Urine Negative Negative Leukocyte Esterase Urine Trace Negative RBC Urine 0-2 0-2 /HPF WBC Urine 0-5 0-5 /HPF Squamous Epithelial Cell Urine 0-2 0-2 /HPF Bacteria Urine None Seen None Seen Hyaline Casts Urine 0-2 0-2 /LPF Complete Blood Count Auto Di ff Reviewed date:11/28/2024 04:16:45 PM Interpretation: Performing Lab:[facility], [address] [place] [phone] Notes/Report: White Blood Count 4.7 4.8-10.8 X10*3/uL Red Blood Count 5.43 4.60-5.80 X10*6/uL Hemoglobin 16.9 14.0-18.0 g/dl Hematocrit 48.9 42.0-52.0 % Mean Corpuscular Volume 90.1 80.0-98.0 fL Mean Corpuscular Hemoglobin 31.1 27.0-33.0 pg Mean Corpuscular HGB Conc 34.6 31.0-36.0 g/dl Red Cell Distribution Width 13.2 11.0-16.0 % Platelet Count 320 160-400 X10*3/uL Mean Platelet Volume 9.6 9.4-12.4 fL Neutrophils Percent Auto 48.8 45-73 % Imm Gran Pct Auto 0.2 0.0-0.4 % Lymphocytes Percent Auto 32.0 20-40 % Monocytes Percent Auto 9.5 2-11 % Eosinophils Percent Auto 8.6 0-4 % Basophils Percent Auto 0.9 0-2 % NRBC Pct Auto 0.0 0.0-0.2 /100WBC Neutrophils Absolute Auto 2.3 2.0-8.3 x10*3/u L Imm Gran Abs Auto 0.01 0.00-0.03 X10*3/uL Lymphocytes Absolute Auto 1.5 1.2-4.9 X10*3/u L Monocytes Absolute Auto 0.4 0.1-1.2 X10*3/uL Eosinophils Absolute Auto 0.4 0.0-0.4 X10*3/u L Basophils Absolute Auto 0.0 0.0-0.2 X10*3/uL NRBC Abs Auto 0.000 0.0-0.012 X10*3/uL Hold Gold Reviewed date:11/28/2024 04:09:36 PM Interpretation: Performing Lab:[facility], [address] [place] [phone] Notes/Report: Hold Gold See Note Specimen held untested for 24 hours; Call to request Chemistry testing. Hold Green Gel Reviewed date:11/28/2024 04:09:06 PM Interpretation: Performing Lab:[facility], [address] [place] [phone] Notes/Report: Hold Green Gel See Note Specimen held untested for 24 hours; Call to request Chemistry testing. PSA,Total (Free>4and<10) Reviewed date:11/28/2024 04:08:52 PM Interpretation: Performing Lab:[facility], [address] [place] [phone] Notes/Report: PSA,Total (Free>4and<10) 0.88 0.00-4.00 ng/mL A [...] between 4.0 and 10.0 ng/mL. PSA methodology: Bonsai AI Alinity i Chemiluminescent Microparticle Immunoassay (CMIA) Reason For Referral No Information Medications Medication SIG (Take, Route, Frequency, Duration) Notes Start Date End Date Status Citalopram Hydrobromide 20 MG 1 1/2 Orally Once a day for 30 day(s) 06/15/2020 Not-Taking Wellbutrin SR 100 MG 2 tabs q am Orally Once a day Not-Taking Omeprazole 20 MG 1 capsule 30 minutes before morning meal Orally Once a day for 90 days 05/30/2023 Not-Taking Clobetasol Propionate 0.05 % 1 application to affected area Externally Twice a day for 30 days 03/06/2017 Not-Taki ng Escitalopram Oxalate 10 MG 1 tablet Orally Once a day for 30 day(s) 08/17/2020 Not-Taking ProAir HFA 108 (90 Base) MCG/ACT 1 puff as needed Inhalation every 4 hrs Active Ibuprofen 800 MG TAKE 1 TABLET BY PRASHANTH TH THREE TIMES A DAY WITH FOOD OR MILK NEEDED FOR 30 DAYS for 30 Active Testosterone Cypionate 200 MG/ML 1 mL Intramuscular Active Immunizations Vaccine Route Administration Date Status Comme nts Fluarix Quadrivalent IM Intramuscular 06/18/2020 Administe red Covid Vaccine Unknown 10/16/2020 Administered AT WORK SARS-COV-2 Moderna Unknown 11/20/2020 Administered SARS-COV-2 Moderna Unknown 09/04/2021 Administered Fluarix Quadrivalent IM Intramuscular 05/30/2023 Administe red Fluarix Quadrivalent - 150 IM Intramuscular 06/20/2024 [...] Never (0 point) Points 4 Interpretation Positive Problems Problem Type SNOMED Code ICD Code Onset Dates Problem Status W/U Status Risk Notes Problem 21801031 Anxiety (F41.9) Active confirmed Problem Androgen deficiency (33781272) Testosterone deficiency (E29.1) Active confirmed Problem 278801767 Mild intermitten t asthma without complication (J45.20) Active confirmed Problem 82713588 Intrinsic eczema (L20.84) Active confirmed Problem 100317886 Schatzki's ring (K22.2) Active confirmed Problem 60096283 Dysthymia (F34.1) Active confirmed Problem 898455841 Panic attacks (F41.0) Active confirmed Problem Hypesthesia (337260247) Hypesthesia (R20.1) Active confirmed Problem 138397246 Gastroesophageal reflux disease with esophagitis without hemorrhage (K21.00) Active confirmed Problem 474867157 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 Problem 122221372 Intermittent paresthesia of hand and foot (R20.2) Active confirmed Vital Signs Blood pressure diastolic 88 mm Hg 11/28/2024 rex ght is up 5 pounds since 06-20-24 Height 69 in 11/28/2024 weight is up 5 pounds since 06-20-24 Blood pressure systolic 132 mm Hg 11/28/2024 weig ht is up 5 pounds since 06-20-24 Weight 199 lbs 11/28/2024 weight is up 5 pounds since 06-20-24 BMI 29.38 kg/m2 11/28/2024 weight is up 5 pounds since 06-20-24 Encounters Encounter Location Date Provider Diagnosis Kody Spear MD [address] [place] [phone] 06/20/2024 Kody Spear Schatzki's ring K22. 2 ; Annual physical exam Z00.00 ; Low testosterone in male R79.89 ; Encounter for immunization Z23 ; Panic attacks F41.0 ; Mild intermittent asthma without complication J45.20 ; Colon cancer screening Z12.11 and Depression screening Z13.31 [address]ody Spe[address] MD [address] [place] [phone] 05/21/2024 Kody Spear Blood tests for routine general physical examination Z00.00 Kody Spear MD [address] [place] [address] Drive [address] [place], [place] [phone] 11/28/2024 Kody Spear Testosterone deficiency E29.1 Assessments Encounter Date Diagnosis (ICD Code) Assessment Notes Treatment Notes Treatment Clinical Notes Section Notes 06/20/2024 Schatzki's ring (ICD-10 - K22.2) not having any problems 06/20/2024 Annual physical exam (ICD-10 - Z00.00) labs reviewed and discussed with patient 05/21/2024 Blood tests for routine general physical examination (ICD-10 - Z00.00) 11/28/2024 Testosterone deficiency (ICD-10 - E29.1) discussed referral to [facility] at [facility], will continue to monitor, labs pending 06/20/2024 Low testosterone in male (ICD-10 - [...] - Z13.31) negative screen Plan Of Treatment Pending Test Test Name Order Date Electrocardiogram (EKG) 05/16/2019 CBC w DIFF 11/28/2024 MRI TIBIA LT W&WO CONTRAST 01/20/2023 XR GI SERIES 03/06/2017 Testosterone, Free/Total 11/28/2024 NM bone scan whole body 02/10/2023 Next Appt Details Provider Name:Kody paulson, 06/17/2025 07:45:00 AM, [address] [place] [address], [address], [place], [place], [phone], Provider Name:Kody paulson, 06/23/2025 02:30:00 PM, [address] [place] [address], [address], [place], [place], [phone], Insurance Providers Payer Name Payer Address Payer Phone Subscriber Number Group Number Insured Name Patient Relationship to Insured Coverage Start Date Coverage End Date [address] [facility] KATHRYN MELGAR [phone] [id number] Froilan Mark Self - patient is the insured 5 Medical (General) History Medical History History ICD Code ct of head normal in er 09/06
[2024-12-04 16:13] LABS: Testosterone, Free 299.2 pg/mL (35.0-155.0); Testosterone, Total 1039 ng/dL (250-1100)
== END 2024-11-28 13:15 | disposition home or self-care (01) ==
LOC: HO.LNP 13:14
PROVIDERS: Visit Provider Internal Medicine
DX: E29.1 Testicular hypofunction (principal); Z12.5 Encounter for screening for malignant neoplasm of prostate
CPT/HCPCS: 84153; 84402; 84403; 85025

== ENCOUNTER 2025-06-17 12:59 | Outpatient (REF) | payer OTHER, SELFPAY ==
--- OUTSIDE RECORDS SUMMARY | 2024-05-21 04:00 | XMS_ITS ---
Author Organization Kody Spear MD Address [address] [place], [place] [id number] Care Team Providers Care Stonemason Apprentice Name Role Phone Kody Spear Primary Care Provider [phone] Results Component Value Reference Range Notes Complete Blood Count Auto Di ff Reviewed date:05/21/2024 02:14:55 PM Interpretation: Performing Lab:[facility], [address] [place] [id number] Notes/Report: White Blood Count 6.8 4.8-10.8 X10*3/uL Red Blood Count 5.09 4.60-5.80 X10*6/uL Hemoglobin 15.6 14.0-18.0 g/dl Hematocrit 47.4 42.0-52.0 % Mean Corpuscular Volume 93.1 80.0-98.0 fL Mean Corpuscular Hemoglobin 30.6 27.0-33.0 pg Mean Corpuscular HGB Conc 32.9 31.0-36.0 g/dl Red Cell Distribution Width 12.9 11.0-16.0 % Platelet Count 331 160-400 X10*3/uL Mean Platelet Volume 9.7 9.4-12.4 fL Neutrophils Percent Auto 47.2 45-73 % Imm Gran Pct Auto 0.3 0.0-0.4 % Lymphocytes Percent Auto 35.6 20-40 % Monocytes Percent Auto 9.5 2-11 % Eosinophils Percent Auto 6.7 0-4 % Basophils Percent Auto 0.7 0-2 % NRBC Pct Auto 0.0 0.0-0.2 /100WBC Neutrophils Absolute Auto 3.2 2.0-8.3 x10*3/u L Imm Gran Abs Auto 0.02 0.00-0.03 X10*3/uL Lymphocytes Absolute Auto 2.4 1.2-4.9 X10*3/u L Monocytes Absolute Auto 0.6 0.1-1.2 X10*3/uL Eosinophils Absolute Auto 0.5 0.0-0.4 X10*3/u L Basophils Absolute Auto 0.1 0.0-0.2 X10*3/uL NRBC Abs Auto 0.000 0.0-0.012 X10*3/uL Comprehensive [place]. Panel Fa st Reviewed date:05/21/2024 05:06:49 PM Interpretation: Performing Lab:[address] [id number] Notes/Report: Sodium 140 135-145 mmol/L Potassium 3.7 3.3-5.1 mmol/L Chloride 102 96-108 mmol/L Carbon Dioxide 28 22-29 mmol/L Anion Gap 14 12-20 Blood Urea Nitrogen 17 9-16 mg/dL Creatinine 0.92 0.5-1.4 mg/dL Estimated Glomerular Filt Rate > 60 NOTE: For -Iraqi individuals, multiply the result by 1.210. Chronic Kidney Disease: Estimated GFR < 60 mL/min/1.73m2 Severe Kidney Disease: Estimated GFR < 15 mL/min/1.73m2 Glucose Fasting 90 60-99 mg/dL Calcium 9.6 8.4-10.2 mg/dL Bilirubin Total 1.2 0.0-1.0 mg/dL Aspartate Amino Transferase 24 5-37 U/L Alanine Aminotransferase 26 0-40 U/L Total Protein 8.3 6.5-8.0 g/dL Albumin Level 4.4 3.5-5.0 g/dL Alkaline Phosphatase 62 39-117 U/L Lipid Panel Reviewed date:05/21/2024 02:13:22 PM Interpretation: Performing Lab:[facility], [address] [place] [id number] Notes/Report: Triglycerides 101 <150 mg/dL Desirable Triglyceride: less than 150 mg/dL Borderline High Triglyceride 150-199 mg/dL High Triglyceride: 200-499 mg/dL Very High Triglyceride: greater than or equal to 5OO mg/dL Cholesterol 237 <200 mg/dL Desirable Cholesterol: less than 200 mg/dL Borderline High Cholesterol: 200-239 mg/dL High Cholesterol: greater than 239 mg/dL LDL Cholesterol Calculated 147 <100 mg/dL Desirable LDL: less than 100 mg/dL Near Optimal/Above Optimal LDL: 110-129 mg/dL Borderline High LDL: 130-159 mg/dL High LDL: 160-189 mg/dL Very High LDL: greater than or equal to 190 mg/dL HDL Cholesterol 70 >40 mg/dL Desirable HDL: greater than 40 mg/dL Note: This HDL assay may give artificially low results in patients with liver disease. UA ClnCatch+Micro w/rflx Cul t Reviewed date:05/21/2024 05:05:52 PM Interpretation: Performing Lab:[facility], [address] [place] [id number] Notes/Report: Urine, Clean Catch Color Urine Yellow Appearance Urine Clear PH 6.5 5.0-9.0 Glucose Urine UA Negative Negative mg/dL Urine Blood Negative Negative Specific Virgin - Urine 1.025 1.005-1.025 Urine Protein Negative Neg-Trace mg/dL Urine Ketones Trace Negative mg/dL Nitrite Urine Negative Negative Leukocyte Esterase Urine Trace Negative RBC Urine 0-2 0-2 /HPF WBC Urine 0-5 0-5 /HPF Squamous Epithelial Cell Urine 0-2 0-2 /HPF Bacteria Urine None Seen None Seen Hyaline Casts Urine 0-2 0-2 /LPF REASON FOR VISIT yearly fasting labs Encounters Encounter Location Date Provider Diagnosis Kody Spear MD [address] [place], [place] [id number] 05/21/2024 Kody Spear Blood tests for routine general physical examination Z00.00 Assessments Encounter Date Diagnosis (ICD Code) Assessment Notes Treatment Notes Treatment Clinical Notes Section Notes 05/21/2024 Blood tests for routine general physical examination (ICD-10 - Z00.00) Plan Of Treatment Next Appt Details Provider Name:Kody paulson, 06/23/2025 02:30:00 PM, [address], [address], [place], [place], [id number], Progress Notes * Froilan MARK PDOB:1985 (39 yo M)Acc No.[id number]:05/21/2024 Progress Note Patient: Froilan FRAGOSO Provider: Major Spear MD :1985 A ge:38 Y S ex:Male Date:05/21/2024 Address:[address] [place] [address] Jonathan holguin [id number] Subjective: * Chief Complaints: * 1 . Yearly fasting labs. * Medical History: Objective: * Vitals: Assessment: * Assessment: 1. B lood tests for routine general physical examination - Z00.00 (Primary) Plan: * Treatment: * Procedure Codes: 3 6415 VENIPUNCT, ROUTINE* * * The named appointment provid er may or may not be the originator of this progress note, and it is not deemed complete until electronically signed by the appointment provider. Sign off status: Pending * Provider: Major Spear MD Date: 0 05/21/2024 Generated for Ilene hernandes/Chelo/Poonamitting on: 06/17/2025 02:08 PM EDT
--- OUTSIDE RECORDS SUMMARY | 2024-06-20 10:30 | XMS_ITS ---
Author Organization Kody Spear MD Address [address] [place], [place] [id number] Care Team Providers Care [employer] Operations Specialist Name Role Phone Kody Spear Primary Care Provider Allergies No Known Allergies REASON FOR VISIT annual visit Medications Medication SIG (Take, Route, Frequency, Duration) Notes Start Date End Date Status Ibuprofen 800 MG TAKE 1 TABLET BY PRASHANTH TH THREE TIMES A DAY WITH FOOD OR MILK NEEDED FOR 30 DAYS for 30 Active ProAir HFA 108 (90 Base) MCG/ACT 1 puff as needed Inhalation every 4 hrs Active Omeprazole 20 MG 1 capsule 30 minutes before morning meal Orally Once a day for 90 days 05/30/2023 Not-Taking Wellbutrin SR 100 MG 2 tabs q am Orally Once a day Not-Taking Citalopram Hydrobromide 20 MG 1 1/2 Orally Once a day for 30 day(s) 06/15/2020 Not-Taking Escitalopram Oxalate 10 MG 1 tablet Orally Once a day for 30 day(s) 08/17/2020 Not-Taking Clobetasol Propionate 0.05 % 1 application to affected area Externally Twice a day for 30 days 03/06/2017 Not-Taking Immunizations Vaccine Route Administration Date Status Comme nts Fluarix Quadrivalent - 150 IM Intramuscular 06/20/2024 Adm inistered Social History Tobacco Use: Social History Observation Description Date Details (start date - stop date) Never Smoker NA - NA Tobacco Use/Smoking Question Answer Notes Patient is a nonsmoker Alcohol Screen Question Answer Notes Did you have a drink contain ing alcohol in the past year? Yes How often did you have a dri nk containing alcohol in the past year? 2 to 3 times a week (3 points) How many drinks did you have on a typical day when you were drinking in the past year? 3 or 4 drinks (1 point) How often did you have 6 or more drinks on one occasion in the past year? Never (0 point) Points 4 Interpretation Positive Vital Signs Blood pressure systolic 122 mm Hg 06/20/20 24 Blood pressure diastolic 84 mm Hg 024 Height 69 in 06/20/2024 Weight 194 lbs 06/20/2024 BMI 28.65 kg/m2 06/20/2024 garrett is down 5 pounds since 11-23-23 Encounters Encounter Location Date Provider Diagnosis Kody Spear MD [address] [place] [address] [address] [place], [place] [id number] 06/20/2024 Kody Spear Mojgantzki's ring K22. 2 ; Annual physical exam Z00.00 ; Low testosterone in male R79.89 ; Encounter for immunization Z23 ; Panic attacks F41.0 ; Mild intermittent asthma without complication J45.20 ; Colon cancer screening Z12.11 and Depression screening Z13.31 Assessments Encounter Date Diagnosis (ICD Code) Assessment Notes Treatment Notes Treatment Clinical Notes Section Notes 06/20/2024 Schatzki's ring (ICD-10 - K22.2) not having any problems 06/20/2024 Annual physical exam (ICD-10 - Z00.00) labs reviewed and discussed with patient 06/20/2024 Low testosterone in male (ICD-10 - R79.89) had appt with dr bates endocrine 06/20/2024 Encounter for immunization (ICD-10 - Z23) flu vaccine administered 06/20/2024 Panic attacks (ICD-10 - F41.0) not having any problems 06/20/2024 Mild intermittent asthma without complication (ICD-10 - J45.20) stable, will continue current regiment 06/20/2024 Colon cancer screening (ICD-10 - Z12.11) no stool, sent home with cards , will return to office 06/20/2024 Depression screening (ICD-10 - Z13.31) negative screen Plan Of Treatment Treatment Notes Assessment Notes Schatzki's ring not having any probl ems Annual physical exam labs reviewed and d iscussed with patient Low testosterone in male had appt with d r how endocrine Encounter for immunization flu vaccine a dministered Panic attacks not having any probl ems Mild intermittent asthma wit hout complication stable, will continue current regiment Colon cancer screening no stool, sent ho mi with cards , will return to office Depression screening negative screen Next Appt Details Follow Up: 1 Year, Reason: Provider Name:Kody Rashid ier, 06/23/2025 02:30:00 PM, [address], [address], [place], [place], [id number], Progress Notes * Froilan MARK PDOB:1985 (38 yo M)Acc No.[id number]:06/20/2024 Progress Notes Patient: Froilan Espinoza Provider: Major Spear MD :1985 A ge:38 Y S ex:Male Date:06/20/2024 Address:[address] [place] [address] [place], [id number] Subjective: * Chief Complaints: * A nnual visit * HPI: D epression Screening: PHQ-9 L ittle interest or pleasure in doing things N ot at all, F eeling down, depressed, or hopeless N ot at all, T rouble falling or staying asleep, or sleeping too much N ot at all, F eeling tired or having little energy N ot at all, P oor appetite or overeating N ot at all, F eeling bad about yourself or that you are a failure, or have let yourself or your family down N ot at all, T rouble concentrating on things, such as reading the newspaper or watching television N ot at all, M oving or speaking so slowly that other people could have noticed; or the opposite, being so fidgety or restless that you have been moving around a lot more than usual N ot at all, T houghts that you would be better off or of hurting yourself in some way N ot at all, T otal Score 0 . I nterpretation and Intervention D epression Screening Findings N egative, F ollow-Up for Depression : review of PHQ-9 found negative result, no follow-up needed. C ommunication Needs: Communication Needs D oes the patient have a hearing impairment N o, D oes the patient have a vision impairment? N o, D oes the patient have a cognition impairment? N o. S ELIAS Questions: SDOH Questions I n the past year have you been worried about losing housing? N o, I n the past year have you or any family members you live with been unable to get any of the following when it was really needed? Check all that apply: N one. S ymptom(s): patient is a 38 yo male here for annual visit with review of recent labs andfollow up of chronic issues, here for follow up. has been doing well since getting on day shift. * ROS: G eneral/Constitutional: Change in appetite d enies. C hills d enies. F ever d enies. O phthalmologic: Blurred vision d enies. D ischarge d enies. P ain d enies. E NT: Decreased hearing d enies. S ore throat d enies.?Swollen glands d enies. E ndocrine: Cold intolerance d enies. E xcessive thirst d enies. H eat intolerance d enies. W eight loss d enies. R espiratory: Cough d enies. S hortness of breath at rest d enies. S hortness of breath with exertion d enies. W heezing d enies. C ardiovascular: Chest pain at rest d enies. C hest pain with exertion?denies. I rregular heartbeat d enies. S hortness of breath d enies. ? G astrointestinal: Abdominal pain d enies. C hange in bowel habits d enies. D iarrhea d enies. N ausea d enies. R ectal bleeding d enies. V omiting d enies . G enitourinary: Blood in urine d enies. D ifficulty urinating d enies. F requent urination d enies. M usculoskeletal: Painful joints d enies. W eakness d enies. ? S kin: Dry skin d enies. I tching d enies. D enies?Mole(s), changes in moles, new moles or any lesions of concern. D enies P hotosensitivity. R corrie d enies. N eurologic: Dizziness d enies. F ainting d enies. H eadache?denies. * Medical History: * Surgical History: * Hospitalization/Major Diagno stic Procedure: * Family History: F ather: alive. M other: alive. 2 son(s) . . No pertinent family medical history, No pertinent family medical history. * Social History: T obacco Use: T obacco Use/Smoking P atient is a n onsmoker. D rugs/Alcohol: A lcohol Screen D id you have a drink containing alcohol in the past year? Y es, H ow often did you have a drink containing alcohol in the past year? 2 to 3 times a week (3 points), H ow many drinks did you have on a typical day when you were drinking in the past year? 3 or 4 drinks (1 point), H ow often did you have 6 or more drinks on one occasion in the past year? N ever (0 point), P oints 4 , I nterpretation P ositive. M iscellaneous: n o Caffeine, 2-3 cups per day. Children: yes. no Exercise. Home smoke detector use: yes. Housing: owning. Living with: family, spouse. Marital status: . Occupation: works full-time. Pets: none, 1 dog. no Travel outside of the [place]. * Medications: T akingIbuprofen 800 MG Tablet TAKE 1 TABLET BY MOUTH THREE TIMES A DAY WITH FOOD OR MILK NEEDED FOR 30 DAYS ProAir HFA 108 (90 Base) MCG/ACT Aerosol Solution 1 puff as needed Inhalation every 4 hrsTaking Ibuprofen 800 MG Tablet TAKE 1 TABLET BY MOUTH THREE TIMES A DAY WITH FOOD OR MILK NEEDED FOR 30 DAYS Taking ProAir HFA 108 (90 Base) MCG/ACT Aerosol Solution 1 puff as needed Inhalation every 4 hrsNot-Taking/PRNOmeprazole 20 MG Capsule Delayed Release 1 capsule 30 minutes before morning meal Orally Once a dayWellbutrin SR 100 MG Tablet Extended Release 12 Hour 2 tabs q am Orally Once a dayCitalopram Hydrobromide 20 MG Tablet 1 1/2 Orally Once a dayEscitalopram Oxalate 10 MG Tablet 1 tablet Orally Once a dayClobetasol Propionate 0.05 % Cream 1 application to affected area Externally Twice a dayMedication List reviewed and reconciled with the patientNot-Taking/PRN Omeprazole 20 MG Capsule Delayed Release 1 capsule 30 minutes before morning meal Orally Once a dayNot-Taking/PRN Wellbutrin SR 100 MG Tablet Extended Release 12 Hour 2 tabs q am Orally Once a dayNot-Taking/PRN Citalopram Hydrobromide 20 MG Tablet 1 1/2 Orally Once a dayNot-Taking/PRN Escitalopram Oxalate 10 MG Tablet 1 tablet Orally Once a dayNot-Taking/PRN Clobetasol Propionate 0.05 % Cream 1 application to affected area Externally Twice a dayMedication List reviewed and reconciled with the patient * Allergies: N .K.D.A.yes[Allergies Verified] Objective: * Vitals: H t: 69, Wt:194, BMI:28.65, BP:122/84 weigt is down 5 pounds since 11-23-23. * P ast Orders: L ab:Complete Blood Count Auto Diff (Order Date - 05/21/2024) (Collection Date - 05/21/2024) Value Reference Range White Blood Count 6.8 4.8-10.8 - X10*3/uL Red Blood Count 5.09 4.60-5.80 - X10*6/uL Hemoglobin 15.6 14.0-18.0 - g/dl Hematocrit 47.4 42.0-52.0 - % Mean Corpuscular Volume 93.1 80.0-98.0 - fL Mean Corpuscular Hemoglobin 30.6 27.0-33.0 - pg Mean Corpuscular HGB Conc 32.9 31.0-36.0 - g/ dl Red Cell Distribution Width 12.9 11.0-16.0 - % Platelet Count 331 160-400 - X10*3/uL Mean Platelet Volume 9.7 9.4-12.4 - fL Neutrophils Percent Auto 47.2 45-73 - % Imm Gran Pct Auto 0.3 0.0-0.4 - % Lymphocytes Percent Auto 35.6 20-40 - % Monocytes Percent Auto 9.5 2-11 - % Eosinophils Percent Auto 6.7 H 0-4 - % Basophils Percent Auto 0.7 0-2 - % NRBC Pct Auto 0.0 0.0-0.2 - /100WBC Neutrophils Absolute Auto 3.2 2.0-8.3 - x10* 3/uL Imm Gran Abs Auto 0.02 0.00-0.03 - X10*3/uL Lymphocytes Absolute Auto 2.4 1.2-4.9 - X10* 3/uL Monocytes Absolute Auto 0.6 0.1-1.2 - X10*3/ uL Eosinophils Absolute Auto 0.5 H 0.0-0.4 - X10* 3/uL Basophils Absolute Auto 0.1 0.0-0.2 - X10*3/ uL NRBC Abs Auto 0.000 0.0-0.012 - X10*3/uL L ab:Comprehensive [employer] Panel Fast (Order Date - 05/21/2024) (Collection Date - 05/21/2024) Value Reference Range Sodium 140 135-145 - mmol/L Bilirubin Total 1.2 H 0.0-1.0 - mg/dL Aspartate Amino Transferase 24 5-37 - U/L Alanine Aminotransferase 26 0-40 - U/L Total Protein 8.3 H 6.5-8.0 - g/dL Albumin Level 4.4 3.5-5.0 - g/dL Alkaline Phosphatase 62 39-117 - U/L Potassium 3.7 3.3-5.1 - mmol/L Chloride 102 96-108 - mmol/L Carbon Dioxide 28 22-29 - mmol/L Anion Gap 14 12-20 - Blood Urea Nitrogen 17 H 9-16 - mg/dL Creatinine 0.92 0.5-1.4 - mg/dL Estimated Glomerular Filt Rate > 60 - Glucose Fasting 90 60-99 - mg/dL Calcium 9.6 8.4-10.2 - mg/dL L ab:Lipid Panel (Order Date - 05/21/2024) (Collection Date - 05/21/2024) Value Reference Range Triglycerides 101 <150 - mg/dL Cholesterol 237 H <200 - mg/dL LDL Cholesterol Calculated 147 H <100 - mg/dL HDL Cholesterol 70 >40 - mg/dL L ab:UA ClnCatch+Micro w/rflx Cult (Order Date - 05/21/2024) (Collection Date - 05/21/2024) Value Reference Range Color Urine Yellow - Appearance Urine Clear - PH 6.5 5.0-9.0 - Glucose Urine UA Negative Negative - mg/dL Urine Blood Negative Negative - Specific [place] - Urine 1.025 1.005-1.025 - Urine Protein Negative Neg-Trace - mg/dL Urine Ketones Trace Negative - mg/dL Nitrite Urine Negative Negative - Leukocyte Esterase Urine Trace A Negative - RBC Urine 0-2 0-2 - /HPF WBC Urine 0-5 0-5 - /HPF Squamous Epithelial Cell Urine 0-2 0-2 - /HP F Bacteria Urine None Seen None Seen - Hyaline Casts Urine 0-2 0-2 - /LPF * Examination: G eneral Examination: GENERAL APPEARANCE: w ell developed, well nourished, in no acute distress. HEAD: n ormocephalic, atraumatic. EYES: p upils equal, round, reactive to light and accommodation, sclera non-icteric. EARS: n ormal. ORAL CAVITY: m ucosa moist. THROAT: c lear. NECK/THYROID: n suad supple, full range of motion, no cervical lymphadenopathy, no bruits. SKIN: w arm and dry, no suspicious lesions. HEART: r egular rate and rhythm, S1, S2 normal, no murmurs.? LUNGS: c lear to auscultation bilaterally. ABDOMEN: s oft, nontender, nondistended, bowel sounds present, normal, no organomegaly , no masses palpable. RECTAL EXAM: n ormal tone, no external hemorrhoids, no masses palpable, prostate normal, no stool sent with cards. MALE GENITOURINARY: u ncircumcised, no testicular mass, testes descended bilaterally. EXTREMITIES: n o clubbing, cyanosis, or edema. NEUROLOGIC: n onfocal, motor strength normal upper and lower extremities, sensory exam intact. Assessment: * Assessment: 1. A nnual physical exam - Z00.00 (Primary) 2 . S chatzki's ring - K22.2 3 . L ow testosterone in male - R79.89 4 . E ncounter for immunization - Z23 5 . P anic attacks - F41.0 6 . M ild intermittent asthma without complication - J45.20 7 . C olon cancer screening - Z12.11 8 . D epression screening - Z13.31 Plan: * Treatment: 2. S chatzki's ring Notes: not having any problems 3. L ow testosterone in male Notes: had appt with dr bates endocrine 4. E ncounter for immunization Notes: flu vaccine administered 5. P anic attacks Notes: not having any problems 6. M ild intermittent asthma without complication Notes: stable, will continue current regiment 7. C olon cancer screening Notes: no stool, sent home with cards , will return to office 8. D epression screening Notes: negative screen * Immunizations: Fluarix Quadrivalent - 150 : 0.5 mL (Dose No:1) (Route: Intramuscular) given by Milena James on Left Deltoid * Procedure Codes: 9 0656 FLU VACCINE NO PRESERV 3 & >19665 IMMUNIZATION ADMIN * Preventive Medicine: Counseling: C are goal follow-up plan: C ounseling for abnormal BMI provided?Yes, A lakhwinder Normal BMI Follow-up G iving encouragement to exercise. Immunizations: I nfluenza Sparkle mire you had a flu shot since the most recent May 19? Y es. * Follow Up: 1 Year * * Sign off status: Completed true * Provider: Major Spear MD Date: Generated for Ilene hernandes/Chelo/Aramransmitting on: 0 06/17/2025 02:09 PM EDT History and Physical Notes * HPI (History of Present Illness) Category Sub-Category Detail Notes Category Not es Symptom(s) patient is a 38 yo male here for annual visit with review of recent labs andfollow up of chronic issues, here for follow up. has been doing well since getting on day shift. Depression Screening PHQ-9 Little inte rest or pleasure in doing things: Not at all Feeling down, depressed, or hopeless: No t at all Trouble falling or staying asleep, or sl eeping too much: Not at all Feeling tired or having little energy: N ot at all Poor appetite or overeating: Not at all Feeling bad about yourself o r that you are a failure, or have let yourself or your family down: Not at all Trouble concentrating on thi ngs, such as reading the newspaper or watching television: Not at all Moving or speaking so slowly that other people could have noticed; or the opposite, being so fidgety or restless that you have been moving around a lot more than usual: Not at all Thoughts that you would be b jaylon off or of hurting yourself in some way: Not at all Total Score: 0 Interpretation and Intervention Depression Jeanie parada Findings: Negative Follow-Up for Depression: : review of PH Q-9 found negative result, no follow-up needed SDOH Questions SDOH Questions In the past year have you been worried about losing housing?: No In the past year have you or any family members you live with been unable to get any of the following when it was really needed? Check all that apply:: None Communication Needs Communication Needs Does the patient have a hearing impairment: No Does the patient have a vision impairmen t?: No Does the patient have a cognition impair ment?: No Examination Category Sub-Category Detail Notes Category Not es General Examination GENERAL APPEARANCE: well dev eloped, well nourished, in no acute distress HEAD: normocephalic, atrau matic EYES: pupils equal, round, reactive to light and accommodation, sclera non-icteric EARS: normal THROAT: clear NECK/THYROID: neck supple, full ra nge of motion, no cervical lymphadenopathy, no bruits HEART: regular rate and rhy thm, S1, S2 normal, no murmurs LUNGS: clear to auscultatio n bilaterally ABDOMEN: soft, nontender, non distended, bowel sounds present, normal, no organomegaly , no masses palpable NEUROLOGIC: nonfocal, motor stre ngth normal upper and lower extremities, sensory exam intact SKIN: warm and dry, no minh picious lesions EXTREMITIES: no clubbing, cyanosi s, or edema MALE GENITOURINARY: uncircumcised, no te sticular mass, testes descended bilaterally RECTAL EXAM: normal tone, no exte rnal hemorrhoids, no masses palpable, prostate normal, no stool sent with cards ORAL CAVITY: mucosa moist
--- OUTSIDE RECORDS SUMMARY | 2024-11-28 06:00 | XMS_ITS ---
Author Organization Kody Spear MD Address [address] [place], [place] [id number] Care Team Providers Care Computer Technician Name Role Phone Kody Spear Primary Care Provider Allergies No Known Allergies Results Component Value Reference Range Notes PSA,Total (Free>4and<10) Reviewed date:11/28/2024 04:08:52 PM Interpretation: Performing Lab:[facility], [address] [place] [phone] Notes/Report: PSA,Total (Free>4and<10) 0.88 0.00-4.00 ng/mL A Free PSA was not performed: The percentage of Free PSA can be used to enhance the differentiation of prostate cancer from benign prostatic disease in subjects whose PSA levels are between 4.0 and 10.0 ng/mL. For subjects whose PSA levels are below 4.0 or above 10.0 ng/mL, the risk of prostate cancer is determined on the basis of the PSA alone. Therefore the % Free PSA is recommended only for those subjects whose PSA levels are between 4.0 and 10.0 ng/mL. PSA methodology: Lane Alinity i Chemiluminescent Microparticle Immunoassay (CMIA) Testosterone, Free/Total Reviewed date:12/05/2024 12:32:52 PM Interpretation: Performing Lab:[facility], [address] [place] [phone] Notes/Report: Testosterone, Total [phone] ng/dL For additional information, please refer to http://education.[employer]/faq/ QgwjcRhewdyychsnnVGSZJJJKA131 (This link is being provided for informational/ educational purposes only.) This test was developed and its analytical performance characteristics have been determined by [employer] [facility] [place], [place]. It has not been cleared or approved by the U.S. Food and Drug Administration. This assay has been validated pursuant to the CLIA regulations and is used for clinical purposes. Testosterone, Free 299.2 35.0-155.0 pg/mL This test was developed and its analytical performance characteristics have been determined by [employer] [facility] [place], [place]. It has not been cleared or approved by the U.S. Food and Drug Administration. This assay has been validated pursuant to the CLIA regulations and is used for clinical purposes. THIS TEST WAS PERFORMED AT: [facility] [address] [phone] EMMANUEL ZURITA MD,PHD REASON FOR VISIT CHANGE IN ENDO DR Medications Medication SIG (Take, Route, Frequency, Duration) Notes Start Date End Date Status Citalopram Hydrobromide 20 MG 1 1/2 Orally Once a day for 30 day(s) 06/15/2020 Not-Taking Wellbutrin SR 100 MG 2 tabs q am Orally Once a day Not-Taking Omeprazole 20 MG 1 capsule 30 minutes before morning meal Orally Once a day for 90 days 05/30/2023 Not-Taking ProAir HFA 108 (90 Base) MCG/ACT 1 puff as needed Inhalation every 4 hrs Active Ibuprofen 800 MG TAKE 1 TABLET BY PRASHANTH TH THREE TIMES A DAY WITH FOOD OR MILK NEEDED FOR 30 DAYS for 30 Active Clobetasol Propionate 0.05 % 1 application to affected area Externally Twice a day for 30 days 03/06/2017 Not-Taki ng Escitalopram Oxalate 10 MG 1 tablet Orally Once a day for 30 day(s) 08/17/2020 Not-Taking Testosterone Cypionate 200 MG/ML 1 mL Intramuscular Active Problems Problem Type SNOMED Code ICD Code Onset Dates Problem Status W/U Status Risk Notes Problem Androgen deficiency (07365105) Testosterone deficiency (E29.1) Active confirmed Vital Signs Blood pressure systolic 132 mm Hg 11/29/19 25 Blood pressure diastolic 88 mm Hg 025 Height 69 in 11/28/2024 Weight 199 lbs 11/28/2024 BMI 29.38 kg/m2 11/28/2024 weight is up 5 pounds since 06-20-24 Encounters Encounter Location Date Provider Diagnosis Kody Spear MD [address] [place], [place] [phone] 11/28/2024 Kody Spear Testosterone deficiency E29.1 Assessments Encounter Date Diagnosis (ICD Code) Assessment Notes Treatment Notes Treatment Clinical Notes Section Notes 11/28/2024 Testosterone deficiency (ICD-10 - E29.1) discussed referral to Endo at [facility], will continue to monitor, labs pending Plan Of Treatment Treatment Notes Assessment Notes Testosterone deficiency discussed referr al to Endo at [facility], will continue to monitor, labs pending Pending Test Test Name Order Date CBC w DIFF 11/28/2024 Next Appt Details Provider Name:Kody Rashid ier, 06/23/2025 02:30:00 PM, [address] [place] [address], [address], [place], [place], [phone], Progress Notes * Froilan MARK PDOB:1985 (39 yo M)Acc No.[id number]:11/28/2024 Progress Notes Patient: Osmani FRAGOSOyong Swan Provider: Major Spear MD :1985 A ge:39 Y S ex:Male Date:11/28/2024 Address:[address] [place] [address] [id number] Subjective: * Chief Complaints: * C HANGE IN ENDO * HPI: S ymptom(s): patient s a 39 yo male here for follow up. had been seen by dr trotter at [facility]. has been treated with an anti estrogen and clomid. and then put on testosterone. needs referral to endocrine at [facility]. dr trotter said that he needs blood work every 6 months. needs total free testosterone and psa and cbc. * ROS: G eneral/Constitutional: Denies C hills. D enies F atigue. D enies F ever. D enies H eadache. E NT: Patient denies d ecreased sense of smell, any loss of taste, sore throat. D enies S ore throat. R espiratory: Denies C ough. D enies S hortness of breath at rest. D earle S hortness of breath with exertion. G astrointestinal: Denies D iarrhea. D enies N ausea. M usculoskeletal: Patient denies m uscle aches. P eripheral Vascular: Patient denies r ed and blue toes. * Medical History: * Surgical History: * Hospitalization/Major Diagno stic Procedure: * Medications: T akingTestosterone Cypionate 200 MG/ML Solution 1 mL Intramuscular Ibuprofen 800 MG Tablet TAKE 1 TABLET BY MOUTH THREE TIMES A DAY WITH FOOD OR MILK NEEDED FOR 30 DAYS ProAir HFA 108 (90 Base) MCG/ACT Aerosol Solution 1 puff as needed Inhalation every 4 hrs Taking Testosterone Cypionate 200 MG/ML Solution 1 mL Intramuscular Taking Ibuprofen 800 MG Tablet TAKE 1 TABLET BY MOUTH THREE TIMES A DAY WITH FOOD OR MILK NEEDED FOR 30 DAYS Taking ProAir HFA 108 (90 Base) MCG/ACT Aerosol Solution 1 puff as needed Inhalation every 4 hrs Not-Taking/PRNOmeprazole 20 MG Capsule Delayed Release 1 capsule 30 minutes before morning meal Orally Once a day Wellbutrin SR 100 MG Tablet Extended Release 12 Hour 2 tabs q am Orally Once a day Citalopram Hydrobromide 20 MG Tablet 1 1/2 Orally Once a day Escitalopram Oxalate 10 MG Tablet 1 tablet Orally Once a day Clobetasol Propionate 0.05 % Cream 1 application to affected area Externally Twice a day Medication List reviewed and reconciled with the patientNot-Taking/PRN Omeprazole 20 MG Capsule Delayed Release 1 capsule 30 minutes before morning meal Orally Once a day Not-Taking/PRN Wellbutrin SR 100 MG Tablet Extended Release 12 Hour 2 tabs q am Orally Once a day Not-Taking/PRN Citalopram Hydrobromide 20 MG Tablet 1 1/2 Orally Once a day Not-Taking/PRN Escitalopram Oxalate 10 MG Tablet 1 tablet Orally Once a day Not-Taking/PRN Clobetasol Propionate 0.05 % Cream 1 application to affected area Externally Twice a day Medication List reviewed and reconciled with the patient * Allergies: N .K.D.A.yes[Allergies Verified] Objective: * Vitals: H t: 69, Wt: 199, BMI:29.38, BP:132/88, Wt-k.27. weight is up 5 pounds since 06-20-24. * Examination: G eneral Examination: GENERAL APPEARANCE: a lert, well hydrated, in no distress, male. HEAD: n ormocephalic. SKIN: g ood turgor. HEART: n o murmurs, rubs, gallops. LUNGS: n o wheezes, rales, rhonchi, good air movement, clear to auscultation bilaterally. Assessment: * Assessment: 1. T estosterone deficiency - E29.1 (Primary) Plan: * Treatment: * Procedure Codes: 3 6415 VENIPUNCT, ROUTINE* * * Sign off status: Completed true * Provider: Major Spear MD Date: 0 11/28/2024 Generated for Ilene hernandes/Chelo/Poonamitting on: 06/17/2025 02:08 PM EDT History and Physical Notes * HPI (History of Present Illness) Category Sub-Category Detail Notes Category Not es Symptom(s) patient s a 39 yo male here for follow up. had been seen by dr trotter at [facility]. has been treated with an anti estrogen and clomid. and then put on testosterone. needs referral to endocrine at [facility]. dr trotter said that he needs blood work every 6 months. needs total free testosterone and psa and cbc Examination Category Sub-Category Detail Notes Category Not es General Examination GENERAL APPEARANCE: alert, w ell hydrated, in no distress, male HEAD: normocephalic HEART: no murmurs, rubs, ga llops LUNGS: no wheezes, rales, r honchi, good air movement, clear to auscultation bilaterally SKIN: good turgor
--- OUTSIDE RECORDS SUMMARY | 2025-04-14 06:10 | XMS_ITS ---
Author Organization Kody Spear MD Address [address] [place] [address] Drive [address] [place] [phone] Care Team Providers Care Veneer Stock Layer Name Role Phone Kody Spear Primary Care Provider Medications Medication SIG (Take, Route, Frequency, Duration) Notes Start Date End Date Status Testosterone Cypionate 200 MG/ML 1 mL Intramuscular twice a week for 30 days 04/15/2025 Active Encounters Encounter Location Date Provider Diagnosis Kody Spear MD [address] [place] [address] [place] [phone] 04/14/2025 Kody Spear Plan Of Treatment Medication Medication Name Sig Start Date Stop Date Notes Testosterone Cypionate 200 MG/ML 1 mL Intramuscular twice a week for 30 days 04/15/2025 Next Appt Details Provider Name:Kody Rashid ier, 06/23/2025 02:30:00 PM, [address] [place] [address], Suite [facility], [place], [place], [phone], Progress Notes * Froilan MARK PDOB:1985 (39 yo M)Acc No.[id number]:04/14/2025 Patient: Cathy Froilan JORGENSEN :1985 A ge:39 Y S ex:Male Address:[address] [place] [address] * Refills Refill Testosterone Cypionate Solution, 200 MG/ML, Intramuscular, 10, 1 mL, twice a week, 30 days * true * Date: Generated for Printi ng/Faxing/eTransmitting on: 0 06/17/2025 02:08 PM EDT
--- OUTSIDE RECORDS SUMMARY | 2025-06-17 03:45 | XMS_ITS ---
Author Organization Kody Spear MD Address [address] [place], [place] [id number] Care Team Providers Care Relief Man Name Role Phone Kody Spear Primary Care Provider Results Component Value Reference Range Notes UA ClnCatch+Micro w/rflx Cul t (Not yet reviewed by provider) Interpretation: Performing Lab:[facility], [address] [place] [phone] Notes/Report: Urine, Clean Catch Color Urine Yellow Appearance Urine Clear PH 5.5 5.0-9.0 Glucose Urine UA Negative Negative mg/dL Urine Blood Negative Negative Specific [place] - Urine 1.020 1.005-1.025 Urine Protein Negative Neg-Trace mg/dL Urine Ketones Trace Negative mg/dL Nitrite Urine Negative Negative Leukocyte Esterase Urine Negative Negative RBC Urine 0-2 0-2 /HPF WBC Urine 0-5 0-5 /HPF Squamous Epithelial Cell Urine 0-2 0-2 /HPF Bacteria Urine None Seen None Seen Hyaline Casts Urine 0-2 0-2 /LPF Complete Blood Count Auto Di ff Reviewed date:06/17/2025 02:02:56 PM Interpretation: Performing Lab:[address] [phone] Notes/Report: White Blood Count 5.6 4.8-10.8 X10*3/uL Red Blood Count 5.18 4.60-5.80 X10*6/uL Hemoglobin 16.2 14.0-18.0 g/dl Hematocrit 48.3 42.0-52.0 % Mean Corpuscular Volume 93.2 80.0-98.0 fL Mean Corpuscular Hemoglobin 31.3 27.0-33.0 pg Mean Corpuscular HGB Conc 33.5 31.0-36.0 g/dl Red Cell Distribution Width 13.2 11.0-16.0 % Platelet Count 324 160-400 X10*3/uL Mean Platelet Volume 9.9 9.4-12.4 fL Neutrophils Percent Auto 54.4 45-73 % Imm Gran Pct Auto 0.2 0.0-0.4 % Lymphocytes Percent Auto 31.6 20-40 % Monocytes Percent Auto 9.3 2-11 % Eosinophils Percent Auto 3.8 0-4 % Basophils Percent Auto 0.7 0-2 % NRBC Pct Auto 0.0 0.0-0.2 /100WBC Neutrophils Absolute Auto 3.1 2.0-8.3 x10*3/u L Imm Gran Abs Auto 0.01 0.00-0.03 X10*3/uL Lymphocytes Absolute Auto 1.8 1.2-4.9 X10*3/u L Monocytes Absolute Auto 0.5 0.1-1.2 X10*3/uL Eosinophils Absolute Auto 0.2 0.0-0.4 X10*3/u L Basophils Absolute Auto 0.0 0.0-0.2 X10*3/uL NRBC Abs Auto 0.000 0.0-0.012 X10*3/uL REASON FOR VISIT yearly fasting labs Encounters Encounter Location Date Provider Diagnosis Kody Spear MD [address] [facility] [address] [place] [phone] 06/17/2025 Kody Spear Blood tests for routine general physical examination Z00.00 and Testosterone deficiency E29.1 Assessments Encounter Date Diagnosis (ICD Code) Assessment Notes Treatment Notes Treatment Clinical Notes Section Notes 06/17/2025 Blood tests for routine general physical examination (ICD-10 - Z00.00) 06/17/2025 Testosterone deficiency (ICD-10 - E29.1) Plan Of Treatment Pending Test Test Name Order Date Comprehensive [place]. Panel Fast Lipid Panel 06/17/2025 Testosterone, Free/Total 06/17/2025 UA ClnCatch+Micro w/rflx Cult 06/17/2025 Next Appt Details Provider Name:Kody Rashid ier, 06/23/2025 02:30:00 PM, [address], [address], [place], [place], [phone], Progress Notes * Froilan MARK PDOB:1985 (39 yo M)Acc No.[id number]:06/17/2025 Progress Note Patient: Froilan FRAGOSO Provider: Major Spear MD :1985 A ge:39 Y S ex:Male Date:06/17/2025 Address:[address] [place] [address] [id number] Subjective: * Chief Complaints: * 1 . Yearly fasting labs. * Medical History: Objective: * Vitals: Assessment: * Assessment: 1. B lood tests for routine general physical examination - Z00.00 (Primary) 2 .?Testosterone deficiency - E29.1 Plan: * Treatment: 2. T estosterone deficiency L AB: Comprehensive [place]. Panel Fast L AB: Lipid Panel L AB: Testosterone, Free/Total L AB: UA ClnCatch+Micro w/rflx Cult (Collection Date & Time - 06/17/2025 07:45 AM) L AB: Complete Blood Count Auto Diff (Collection Date & Time - 06/17/2025 07:45 AM) * Procedure Codes: 3 6415 VENIPUNCT, ROUTINE* * * The named appointment provid er may or may not be the originator of this progress note, and it is not deemed complete until electronically signed by the appointment provider. Sign off status: Pending * Provider: Major Spear MD Date: 0 06/17/2025 Generated for Ilene hernandes/Chelo/eTransmitting on: 06/17/2025 02:08 PM EDT
[2025-06-17 13:04] LABS: MANUAL DIFF FLAG NO
[2025-06-17 13:10] LABS: Hematocrit 48.3 % (42.0-52.0); Hemoglobin 16.2 g/dl (14.0-18.0); Imm Gran Abs Auto 0.01 X10*3/uL (0.00-0.03); Imm Gran Pct Auto 0.2 % (0.0-0.4); Lymphocytes Absolute Auto 1.8 X10*3/uL (1.2-4.9); Mean Corpuscular HGB Conc 33.5 g/dl (31.0-36.0); Mean Corpuscular Hemoglobin 31.3 pg (27.0-33.0); Mean Corpuscular Volume 93.2 fL (80.0-98.0); NRBC Abs Auto 0.000 X10*3/uL (0.0-0.012); NRBC Pct Auto 0.0 /100WBC (0.0-0.2); Platelet Count 324 X10*3/uL (160-400); Red Blood Count 5.18 X10*6/uL (4.60-5.80); White Blood Count 5.6 X10*3/uL (4.8-10.8)
[2025-06-17 13:50] LABS: Appearance Urine Clear; Glucose Urine UA Negative (Negative); PH 5.5 (5.0-9.0); Specific Gravity - Urine 1.020 (1.005-1.025)
--- OUTSIDE RECORDS SUMMARY | 2025-06-17 14:08 | XMS_ITS | Patient Health Record ---
Author Organization Kody Spear MD Address [address] [place], [place] [phone] Care Team Providers Care Net Developer Contract Name Role Phone Kody Spear Primary Care Provider Allergies No Known Allergies Results Component Value Reference Range Notes Complete Blood Count Auto Di ff Reviewed date:11/28/2024 04:16:45 PM Interpretation: Performing Lab:[facility], [address] [place] [phone] Notes/Report: White Blood Count 4.7 4.8-10.8 X10*3/uL [...] Gold Reviewed date:11/28/2024 04:09:36 PM Interpretation: Performing Lab:[facility], [address] [place] [phone] Notes/Report: Hold Gold See Note Specimen held untested for 24 hours; Call to request Chemistry testing. Hold Green Gel Reviewed date:11/28/2024 04:09:06 PM Interpretation: Performing Lab:[address] [phone] Notes/Report: Hold Green Gel See Note Specimen held untested for 24 hours; Call to request Chemistry testing. PSA,Total (Free>4and<10) Reviewed date:11/28/2024 04:08:52 PM Interpretation: Performing Lab:[address] [phone] Notes/Report: PSA,Total (Free>4and<10) 0.88 0.00-4.00 ng/mL A [...] 4.0 and 10.0 ng/mL. PSA methodology: [employer] i Chemiluminescent Microparticle Immunoassay (CMIA) Testosterone, Free/Total Reviewed date:12/05/2024 12:32:52 PM Interpretation: Performing Lab:[facility], [address] [place] [phone] Notes/Report: Testosterone, Total [phone] ng/dL For additional information, please refer to http://education.Stack [employer]/faq/ TotalTestosteroneLCMSMSFAQ1 65 (This link is being provided for informational/ educational purposes only.) This test was developed and its analytical performance characteristics have been determined by [facility] [place], [place]. It has not been cleared or approved by the U.S. Food and Drug Administration. This assay has been validated pursuant to the CLIA regulations and is used for clinical purposes. Testosterone, Free 299.2 35.0-155.0 pg/mL This test was developed and its analytical performance characteristics have been determined by [facility] [place], [place]. It has not been cleared or approved by the U.S. Food and Drug Administration. This assay has been validated pursuant to the CLIA regulations and is used for clinical purposes. THIS TEST WAS PERFORMED AT: [facility] [address] EMMANUEL ZURITA MD,PHD Elena Vaca Reviewed date:06/17/2025 01:48:29 PM Interpretation: Performing Lab:[address] [phone] Notes/Report: Elena Vaca See Note Specimen held untested for 24 hours; Call to request Chemistry testing. UA ClnCatch+Micro w/rflx Cul t (Not yet reviewed by provider) Interpretation: Performing Lab:[address] [phone] Notes/Report: Urine, Clean Catch Color Urine Yellow Appearance Urine Clear PH 5.5 5.0-9.0 Glucose Urine UA Negative Negative mg/dL Urine Blood Negative Negative Specific [place] - Urine 1.020 1.005-1.025 Urine Protein Negative [...] ff Reviewed date:06/17/2025 02:02:56 PM Interpretation: Performing Lab:[facility], [address] [place] [phone] Notes/Report: White Blood Count 5.6 4.8-10.8 X10*3/uL [...] X10*3/uL NRBC Abs Auto 0.000 0.0-0.012 X10*3/uL Reason For Referral No Information Medications Medication [...] a day for 90 days 05/30/2023 Not-Taking Testosterone Cypionate 200 MG/ML 1 mL Intramuscular twice a week for 30 days 04/15/2025 Active Clobetasol Propionate 0.05 % 1 application [...] NEEDED FOR 30 DAYS for 30 Active Immunizations Vaccine Route Administration Date Status [...] Problem Status W/U Status Risk Notes Problem 29975314 Anxiety (F41.9) Active confirmed Problem Androgen deficiency (96867919) Testosterone deficiency (E29.1) Active confirmed Problem 177795014 Mild intermitten t asthma without complication (J45.20) Active confirmed Problem 07952801 Intrinsic eczema (L20.84) Active confirmed Problem 383734855 Schatzki's ring (K22.2) Active confirmed Problem 87539110 Dysthymia (F34.1) Active confirmed Problem 829522793 Panic attacks (F41.0) Active confirmed Problem Hypesthesia (766315365) Hypesthesia (R20.1) Active confirmed Problem 909711255 Gastroesophageal reflux disease with esophagitis without hemorrhage (K21.00) Active confirmed Problem 897859130 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 2 ; Annual physical exam Z00.00 ; Low testosterone in male R79.89 ; Encounter for immunization Z23 ; Panic attacks F41.0 ; Mild intermittent asthma without complication J45.20 ; Colon cancer screening Z12.11 and Depression screening Z13.31 Kody Spear MD [address] [place] [address] [address] [place] [id number] 06/17/2025 Kody Spear Blood tests for routine general physical examination Z00.00 and Testosterone deficiency E29.1 Kody Spear MD [address] [place] [address] [address] [place] [id number] 11/28/2024 Kody Spear Testosterone deficiency E29.1 Kody Spear MD [address] [place] [address] [id number] 04/14/2025 Kody Spear Assessments Encounter Date Diagnosis (ICD Code) Assessment Notes Treatment Notes Treatment Clinical Notes Section Notes 06/20/2024 Schatzki's ring (ICD-10 - K22.2) not having any problems 06/20/2024 Annual physical exam (ICD-10 - Z00.00) labs reviewed and discussed with patient 06/17/2025 Blood tests for routine general physical examination (ICD-10 - Z00.00) 11/28/2024 Testosterone deficiency (ICD-10 - E29.1) discussed referral to Endo at [facility], will continue to monitor, labs pending 06/20/2024 Low testosterone in male (ICD-10 - R79.89) had appt with dr bates endocrine 06/17/2025 Testosterone deficiency (ICD-10 - E29.1) 06/20/2024 Encounter for immunization (ICD-10 - Z23) [...] W&WO CONTRAST 01/20/2023 XR GI SERIES 03/06/2017 Comprehensive [place]. Panel Fast Lipid Panel 06/17/2025 Testosterone, Free/Total 06/17/2025 NM bone scan whole body 02/10/2023 UA ClnCatch+Micro w/rflx Cult 06/17/2025 Next Appt Details Provider Name:Kody paulson, 06/23/2025 02:30:00 PM, [address] [facility], [address], [place], [place], [phone], Insurance Providers Payer Name Payer Address Payer Phone Subscriber Number Group Number Insured Name Patient Relationship to Insured Coverage Start Date Coverage End Date [facility] [address] [facility] [address] [facility] [place] MELGAR [id number] Froilan Mark Self - patient is the insured 5 Medical (General) History Medical History History ICD Code ct of head normal in er 09/06
--- OUTSIDE RECORDS SUMMARY | 2025-06-17 14:08 | XMS_ITS | Clinical Summary ---
Author Organization [facility] Address [address] [facility] [address] [place] [phone] Phone Care Team Providers Care Science Specialist Name Role Phone Kody Spear MD Primary Care Provider Allergies No known active allergies Medications albuterol 90 mcg/actuation inhaler Inhale 2 puffs into the lungs every 6 (six) hours as needed for wheezing. Active multivitamins with minerals- folic acid-lycopene (MEN'S ONE-A-DAY) 400-20-300 mcg Tab Take 1 tablet by mouth daily. Active testosterone cypionate (DEPO-TESTOTERO NE) 200 mg/mL injection Inject 0.5 mL (100 mg total) into the muscle every 7 days. 4 mL 2 5 Active testosterone cypionate (DEPO-TESTOTERO NE) 200 mg/mL injection Inject 60 mg into the muscle 2 (two) times a week. 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 He was treated with clomiphene and anastrozole by Dr. Christian for about a year, patient stopped Rx after his second son was born in 08/2021. He was doing fine without treatment until the summer when presented with increased fatigue and low normal total testosterone. At that point he was started on 60 mg testosterone injections twice a week subcu. He switched to IM administration at the same dose because of a lot of bruises. He initially had improvement in his energy but within the last few weeks having more anxiety, feels disoriented at times and has some ED. Libido is fine. He thinks the symptoms were related to mixing up the dates of his injections and giving them too close to each other while on vacation in April. Last free testosterone level was about twice the upper limit of normal, total testosterone was high normal in 11/2024. -Educated patient on the possible causes of hypogonadism. From his history it seems that he has secondary hypogonadism but the cause is unclear. Prolactin level was normal in the past. -Reviewed pros and cons of testosterone replacement and monitoring plan -Would decrease the IM administration to once a week and increase the dose to 100 mg -Repeat testosterone level 3 to 4 days after the 4th or 5th dose to help with dose adjustment -Will try to obtain his previous brain images from [facility] -Follow-up in 6 months Encounters Date Type Department Care Team Description 06/09/2025 Documentation [facility] Endocrinology [address] [place] [address] [place] [address] Jaida Schuler MA 06/05/2025 Telephone [facility] Endocrinology [address] [place] [address] [place] [address] Carmela Fuller MD Brain images 06/02/2025 10:00 AM EDT Office Visit [facility] Endocrinology [address] [place] [address] [place] [address] Carmela Fuller MD Hypogonadism in male (Primary Dx) 04/14/2025 Telephone [facility] Pulmonary, Allergy and Critical Care Medicine [address] [place] [address] Stacia Mendoza Appointment from Last 3 Months Family History Medical History Relation Comments Anxiety disorder Father Depression Father Heart disease Maternal Grandfather Heart disease Mother Relation Status Comments Father Alive Maternal Grandfather Maternal Grandmother Mother Alive Paternal Grandfather Alive Paternal Grandmother Alive Social History Tobacco Use Types Packs/Day Years Used Date Smoking Tobacco: Never Smokeless Tobacco: Former Tobacco Cessation:Counseling Given: Not Answered Alcohol Use Standard Drinks/Week Comments Yes 10 (1 standard drink = 0.6 oz pu re alcohol) Education Answer Date Recorded Are you interested in more education? Not on noemy e 10/08/2024 Are you concerned about learning? Not on file 10/08/2024 No 10/08/2024 No 10/08/2024 Digital Access Answer Date Recorded No 10/08/2024 No 10/08/2024 Reliable internet access at home? Not on file 10/08/2024 Device with a working camera? Not on file Sex and Gender Information Value Date Recorded Sex Assigned at Not on file Legal Sex Male 10:27 PM EDT Gender Identity Not on file Sexual Orientation Not on file Last Filed Vital Signs Vital Sign Reading Time Taken Comments Blood Pressure 120/70 06/02/2025 10:04 AM EDT Pulse 86 06/02/2025 10:04 AM EDT Temperature - - Respiratory Rate - - Oxygen Saturation 98% 06/02/2025 10:04 AM EDT Inhaled Oxygen Concentration - - Weight 83.9 kg (185 lb) 06/02/2025 10:04 AM EDT Height 175.5 cm (5' 9.09 ) 06/02/2025 10:04 AM E DT Body Mass Index 27.25 06/02/2025 10:04 AM EDT Plan of Treatment Upcoming Encounters Date Type Department Care Team (Late st Contact Info) Description 12/17/2025 3:20 PM EDT Office Visit [facility] [address] [place] [phone] Carmela Fuller MD [address] [place] [phone] Health Maintenance Due Date Last Done Comments Adult Td,Tdap Booster 1985 LIPID PANEL 1987 DEPRESSION SCREENING 1999 HEPATITIS C SCREENING 2005 HIV ONE-TIME SCREENING (18-6 5 YEARS) 2005 SCREENING FOR DIABETES 2022 INFLUENZA VACCINE (#1) 2025 COVID-19 VACCINE (2023-2 5 season) 2025 SMOKING STATUS SCREENING (On ce After 26 Yrs) Completed 06/02/2025 HEPATITIS A VACCINES Aged Out No long er eligible based on patient's age to complete this topic HIB VACCINES Aged Out No longer eligi ble based on patient's age to complete this topic MENINGOCOCCAL VACCINES (ACWY) Aged Out No longer eligible based on patient's age to complete this topic MENINGOCOCCAL VACCINES (B) Aged Out N o longer eligible based on patient's age to complete this topic PNEUMOCOCCAL VACCINES (0-49 years) Aged Out No longer eligible based on patient's age to complete this topic Medical Devices Not on file Insurance [facility] Care Teams Science Specialist Relationship Specialty Start Date End Date Kody Spear MD [address] [place] [address] [place] [address] PCP - General Internal Medicine 06/02/25 Additional Source Comments The information contained in this document represents components of the legal health record. It is not the complete legal health record.[facility]
--- OUTSIDE RECORDS SUMMARY | 2025-06-17 14:08 | XMS_ITS | Encounter Summary ---
Author Organization [facility] Address [address] [facility] [address] [place] [phone] Phone Care Team Providers Care Wood Bucker Name Role Phone Kody Spear MD Primary Care Provider Reason for Visit * Reason Onset Date Comments Brain images 06/05/2025 Encounter Details Date Type Department Care Team (Late st Contact Info) Description 06/05/2025 Telephone [facility] [address] [place] [address] [place] [address] Carmela Fuller MD [address] [place] [phone] [email or web address] Brain images Social History Tobacco Use Types Packs/Day Years Used Date Smoking Tobacco: Never Smokeless Tobacco: Former Alcohol Use Standard Drinks/Week Comments Yes 10 [...] on file Sexual Orientation Not on file documented as of this encounter Progress Notes * Carmela Fuller MD - 06/16/2025 10:53 PM EDT Noted, thank you. * Robyn Stein MA - 06/09/2025 10:45 AM EDT Film library found no past records of these * Robyn Stein MA - 06/06/2025 9:41 AM EDT Emailed imaging library * Carmela Fuller MD - 06/05/2025 10:59 PM EDT Patient recalls having several brain images years ago at [facility]. Could you look for either CT or MRI brain reports? documented in this encounter Plan of Treatment Upcoming Encounters Date Type Department Care Team (Late st Contact Info) Description 12/17/2025 3:20 PM EDT Office Visit [facility] [address] [place] [address] [place] [address] Carmela Fuller MD [address] [place] [phone] documented as of this encounter Visit Diagnoses Not on filedocumented in this encounter Care Teams Wood Bucker Relationship Specialty Start Date End Date Kody Spear MD [address] [place] [address] [place] [address] PCP - General Internal Medicine 06/02/25 documented as of this encounter Additional Source Comments The information contained in this document represents components of the legal health record. It is not the complete legal health record.[facility]
[2025-06-17 19:52] LABS: Alanine Aminotransferase 33 U/L (0-40); Albumin Level 4.5 g/dL (3.5-5.0); Alkaline Phosphatase 64 U/L (39-117); Anion Gap 15 (12-20); Aspartate Amino Transferase 31 U/L (5-37); Blood Urea Nitrogen 19 mg/dL (9-16); Calcium 9.1 mg/dL (8.4-10.2); Carbon Dioxide 22 mmol/L (22-29); Chloride 108 mmol/L (96-108); Cholesterol 225 mg/dL (<200); Estimated Glomerular Filt Rate > 60; HDL Cholesterol 58 mg/dL (>40); Potassium 4.2 mmol/L (3.3-5.1); Sodium 141 mmol/L (135-145); Total Protein 7.7 g/dL (6.5-8.0); Triglycerides 156 mg/dL (<150)
[2025-06-22 14:24] LABS: Testosterone, Free 60.0 pg/mL (35.0-155.0)
== END 2025-06-17 13:00 | disposition home or self-care (01) ==
LOC: HO.LNP 12:59
PROVIDERS: Visit Provider Internal Medicine
DX: Z00.00 Encounter for general adult medical examination without abnormal findings (principal); E29.1 Testicular hypofunction
CPT/HCPCS: 80053; 80061; 81001; 84402; 84403; 85025